=== PATIENT | female | born 1950 | race Asian ===

== ENCOUNTER 2018-01-21 11:48 | Inpatient (IN) | payer MEDICARE ==
[~2018-01-21] VITALS: Ht 142.2 cm; Wt 54.8 kg
[2018-01-21 12:05] VITALS: BP 120/78; PULSE 58; RESP 20; TEMP 98.3; O2SAT 98
--- NOTE | 2018-01-21 12:52 | PD ---
HPI Chief Complaint: Fall Time Seen by Provider: 12:26 Travel History International Travel<30 days: No Contact w/Intl Traveler<30days: No Traveled to known affect area: No History of Present Illness HPI 67-year-old female with PMH of DM, HTN presents the ED for evaluation of 10 out of 10 right hip and femur pain. Onset after [place] the [place] just [place]. She has not been ambulatory since then. She is a total knee replacement on the affected leg. She denies numbness, tingling of the extremity. She takes a baby aspirin a day. PFSH Social History Tobacco Use: No Allergies-Medications (Allergen,Severity, Reaction): Coded Allergies: No Known Allergies (Verified Allergy, Unknown, 01/21/18) Reported Meds & Prescriptions Reported Meds & Active Scripts Active Reported Ergocalciferol 50,000 Unit Cap 400 Units PO Q7D Amlodipine (Amlodipine Besylate) 5 Mg Tab 5 Mg PO DAILY Calcium 600 with Vitamin D (Calcium Carbonate-Cholecalciferol) 600-400 mg-Unit Tab 1 Tab PO DAILY Aspirin 81 Mg Chew 81 Mg CHEW ONCE [Zyrtec] Hydroxyzine HCl 25 Mg Tab 25 Mg PO QID Boniva (Ibandronate Sodium) 150 Mg Tab 150 Mg PO Q28D Zolpidem (Zolpidem Tartrate) 10 Mg Tab 10 Mg PO HS PRN Fluconazole 50 Mg Tab 50 Mg PO DAILY Lisinopril-Hctz 20-25 Mg Tab 1 Tab PO DAILY Omeprazole 40 Mg Cap 40 Mg DAILY Atorvastatin (Atorvastatin Calcium) 40 Mg Tab 40 Mg PO HS Iron (Ferrous Sulfate) 18 Mg Tab Ventolin Hfa 18 GM Inh (Albuterol Sulfate) 90 Mcg/Act Aer 1 Puff INH Q4H PRN Diclofenac-Misoprostol 50-0.2 Mg Tab 1 Tab PO QID Tamsulosin (Tamsulosin HCl) 0.4 Mg Cap 0.4 Mg HS Scopolamine Patch 72 HR (Scopolamine) 1 Mg Patch 1 Patch T-DERMAL Q72H Metformin (Metformin HCl) 1,000 Mg Tab 1,000 Mg PO BIDPC Review of Systems Except as stated in HPI: all other systems reviewed are Neg Physical Exam Narrative GENERAL: Well-nourished, well-developed female in no acute distress. SKIN: Focused skin assessment warm/dry. HEAD: Normocephalic. EYES: No scleral icterus. No injection or drainage. NECK: Supple, trachea midline. No JVD or lymphadenopathy. CARDIOVASCULAR: Regular rate and rhythm without murmurs, gallops, or rubs. RESPIRATORY: Breath sounds equal bilaterally. No accessory muscle use. GASTROINTESTINAL: Abdomen soft, non-tender, nondistended. MUSCULOSKELETAL: No cyanosis, or edema. FOCUSED RIGHT LOWER EXTREMITY EXAM: 2+ DP pulse. Leg is held in external rotation and foreshortened as compared to the unaffected leg. Patient has tenderness to palpation in the anterior lateral aspect of the leg. Range of motion testing deferred secondary to patient's pain. Neurovascularly intact distally. BACK: Nontender without obvious deformity. No CVA tenderness. Data Data Last Documented VS Vital Signs Date Time Temp Pulse Resp B/P (MAP) Pulse Ox O2 Delivery O2 Flow Rate FiO2 01/21/18 14:10 68 15 151/72 (98) 97 Room Air 01/21/18 12:05 98.3 Orders Orders Ice/Cold Pack (01/21/18 12:11) Hip, Uni(Ap&Lat) Wo Ap Pelvis (01/21/18 12:11) Electrocardiogram (01/21/18 12:52) Complete Blood Count With Diff (01/21/18 12:52) Comprehensive Metabolic Panel (01/21/18 12:52) Prothrombin Time / Inr (Pt) (01/21/18 12:52) Act Partial Throm Time (Ptt) (01/21/18 12:52) Urinalysis - C+S If Indicated (01/21/18 12:52) Type And Screen (01/21/18 12:52) Chest, Single Ap (01/21/18 12:52) Iv Access Insert/Monitor (01/21/18 12:52) Oximetry (01/21/18 12:52) Ecg Monitoring (01/21/18 12:52) Sodium Chloride 0.9% Flush (Ns Flush) (01/21/18 13:00) Femur (Ap & Lat/2vws) (01/21/18 13:33) Hydromorphone Pf Inj (Dilaudid Pf Inj) (01/21/18 14:00) Metoclopramide Inj (Reglan Inj) (01/21/18 14:15) Comprehensive Metabolic Panel (01/22/18 06:00) Free Thyroxine (T4) (01/22/18 06:00) Hemoglobin (Hgb) A1c (01/22/18 06:00) Magnesium (Mg) (01/22/18 06:00) Phosphorus (Po4) (01/22/18 06:00) Thyroid Stimulating Hormone (01/22/18 06:00) Complete Blood Count With Diff (01/22/18 06:00) Bedside Glucose KARINA.CSUGAR (01/21/18 14:41) Blood Glucose Goal (Criteria) (01/21/18 14:41) Hypoglycemia 70 Mg/Dl Or < (01/21/18 14:41) Notify Dr: Other (01/21/18 14:41) Dextrose 50% In Ellie (Vial) Inj (D50w (Vi (01/21/18 14:45) Glucagon Inj (Glucagon Inj) (01/21/18 14:45) Case Management Consult (01/21/18 ) Insulin Aspart Supplemtl Scale (Novolog (01/21/18 17:00) Admit To Inpatient (01/21/18 ) Code Status (01/21/18 14:41) Vital Signs (Adult) Q4H (01/21/18 14:41) Activity Bed Rest (01/21/18 14:41) Investment Accounting Clerk / Telemetry .CONTINUOUS (01/21/18 14:41) Intake + Output KARINA.QSHIFT (01/21/18 14:41) Diet Npo (01/22/18 Breakfast) Sodium Chlor 0.9% 1000 Ml Inj (Ns 1000 M (01/21/18 16:00) Sodium Chloride 0.9% Flush (Ns Flush) (01/21/18 14:45) Sodium Chloride 0.9% Flush (Ns Flush) (01/21/18 21:00) Acetaminophen (Tylenol) (01/21/18 14:45) Metoclopramide Inj (Reglan Inj) (01/21/18 14:45) Resp Oxygen Osmin C Titrat 1-4 L (01/21/18 ) Acetaminophen (Tylenol) (01/21/18 14:45) Oxycodone-Acetamin 5-325 Mg (Percocet (01/21/18 14:45) Oxycodone-Acetamin 10-325 Mg (Percocet 1 (01/21/18 14:45) Morphine Inj (Morphine Inj) (01/21/18 14:45) Morphine Inj (Morphine Inj) (01/21/18 14:45) Morphine Inj (Morphine Inj) (01/21/18 14:45) Naloxone Inj (Narcan Inj) (01/21/18 14:45) Docusate Sodium-Senna (Mimi-Colace) (01/21/18 21:00) Magnesium Hydroxide Liq (Milk Of Magnesi (01/21/18 14:45) Sennosides (Senokot) (01/21/18 14:45) Bisacodyl Supp (Dulcolax Supp) (01/21/18 14:45) Lactulose Liq (Lactulose Liq) (01/21/18 14:45) Inpatient Certification (01/21/18 ) Consult Orthopedic (01/21/18 ) Diet Diabetic (01/21/18 Dinner) Admit Order (Ed Use Only) (01/21/18 14:49) ^ Knee Immobilizer (01/21/18 14:49) Red Blood Cells (Rbc) (01/21/18 14:00) Ondansetron Odt (Zofran Odt) (01/21/18 15:45) Labs Laboratory Tests Test 01/21/18 14:05 01/21/18 14:35 White Blood Count 10.2 TH/MM3 Red Blood Count 4.52 MIL/MM3 Hemoglobin 10.0 GM/DL Hematocrit 32.1 % Mean Corpuscular Volume 71.1 FL Mean Corpuscular Hemoglobin 22.2 PG Mean Corpuscular Hemoglobin Concent 31.1 % Red Cell Distribution Width 27.6 % Platelet Count 297 TH/MM3 Mean Platelet Volume 8.4 FL Neutrophils (%) (Auto) 86.5 % Lymphocytes (%) (Auto) 6.8 % Monocytes (%) (Auto) 5.5 % Eosinophils (%) (Auto) 0.7 % Basophils (%) (Auto) 0.5 % Neutrophils # (Auto) 8.8 TH/MM3 Lymphocytes # (Auto) 0.7 TH/MM3 Monocytes # (Auto) 0.6 TH/MM3 Eosinophils # (Auto) 0.1 TH/MM3 Basophils # (Auto) 0.0 TH/MM3 CBC Comment AUTO DIFF Differential Comment AUTO DIFF CONFIRMED Basophilic Stippling MOD Ovalocytes 1+ Keratocytes OCC Blood Urea Nitrogen 9 MG/DL Creatinine 0.78 MG/DL Random Glucose 144 MG/DL Total Protein 7.1 GM/DL Albumin 3.4 GM/DL Calcium Level 8.4 MG/DL Alkaline Phosphatase 85 U/L Aspartate Amino Transf (AST/SGOT) 15 U/L Alanine Aminotransferase (ALT/SGPT) 16 U/L Total Bilirubin 0.2 MG/DL Sodium Level 134 MEQ/L Potassium Level 4.0 MEQ/L Chloride Level 99 MEQ/L Carbon Dioxide Level 25.1 MEQ/L Anion Gap 10 MEQ/L Estimat Glomerular Filtration Rate 73 ML/MIN Prothrombin Time 10.4 SEC Prothromb Time International Ratio 1.0 RATIO Activated Partial Thromboplast Time 19.6 SEC MDM Medical Decision Making Medical Screen Exam Complete: Yes Emergency Medical Condition: Yes Differential Diagnosis Hip fracture versus femur fracture versus dislocation versus other Narrative Course 67-year-old female with PMH of DM, HTN presents the ED for evaluation of 10 out of 10 right hip and femur pain. Onset after [place] the [place] just [place]. She has not been ambulatory since then. She is a total knee replacement on the affected leg. She takes a baby aspirin a day. Vitals reviewed. On exam the right leg is foreshortened and externally. Bounding DP pulse and the patient is intact to light. IV was established. Patient was administered 1 mg Dilaudid and 5 mg of Reglan. X-rays reveal distal femur fracture proximal to the knee prosthesis. I discussed the case with the patient is a need for admission. She and her family are agreeable. I spoke with Dr. Rocha's PA recommends the patient be placed in the immobilizer and made n.p.o. at midnight. I spoke with Dr. Johnson who agrees to accept the patient to the medicine service. Please see medicine notes for disposition. Flaquita Crystal January 21, 2018 12:52
[2018-01-21] MEDS ORDERED: SODIUM CHLORIDE 0.9% FLUSH 10 ML FLUSH IVF PRN (13:00)
[2018-01-21] MEDS ORDERED: HYDROmorphone HCL PF 2 MG/ML VIAL IV PUSH ONE (14:00)
[2018-01-21 14:10] VITALS: BP 151/72; PULSE 68; RESP 15; O2SAT 97
--- NOTE | 2018-01-21 14:10 | RADRPT ---
EXAM DATE: 01/21/2018 1:59 PM EDT AGE/SEX: 67 years / Female INDICATIONS: [place] CLINICAL DATA: This is the patient's initial encounter. Patient reports that signs and symptoms have been present for 1 day and indicates a pain score of 10/10. MEDICAL/SURGICAL HISTORY: None. . Right knee replacement. COMPARISON: No prior [facility] exams available for comparison. FINDINGS: There is a spiral fracture of the distal right femoral shaft above the right knee replacement. Proxim al femur appears intact. No dislocation. CONCLUSION: Spiral fracture distal right femoral shaft above right knee prosthesis. Electronically signed by: Esteban Cochran MD 01/21/2018 2:09 PM EDT
--- NOTE | 2018-01-21 14:14 | RADRPT ---
EXAM DATE: 01/21/2018 2:10 PM EDT AGE/SEX: 67 years / Female INDICATIONS: Fell in the ocean. CLINICAL DATA: This is the patient's initial encounter. Patient reports that signs and symptoms have been present for 1 day and indicates a pain score of 0/10. MEDICAL/SURGICAL HISTORY: None. None. COMPARISON: No prior [facility] exams available for comparison. FINDINGS: Minimal retrocardiac opacity. Cardiomegaly mediastinal contours are within normal limits. Bony thorax is intact. CONCLUSION: 1. Minimal retrocardiac opacity which may reflect a small hiatal hernia or airspace consolidation. C onsider formal PA and lateral views of the chest if there is continued clinical concern. Electronically signed by: Nic Castaneda MD 01/21/2018 2:12 PM EDT
[2018-01-21] MEDS ORDERED: METOCLOPRAMIDE HCL 10 MG/2 ML VIAL IV PUSH ONE ×2 (14:15→15:45)
[2018-01-21 14:16] LABS: AUTOMATED NEUTROPHIL # 8.8 TH/MM3 (1.8-7.7); BASOPHIL % 0.5 % (0.0-2.0); EOSINOPHIL # 0.1 TH/MM3 (0-0.4); EOSINOPHIL % 0.7 % (0.0-4.0); HEMATOCRIT 32.1 % (35.0-46.0); LYMPH % 6.8 % (9.0-44.0); LYMPHOCYTE # 0.7 TH/MM3 (1.0-4.8); MEAN CELL VOLUME 71.1 FL (80.0-100.0); MEAN CORPUSCULAR HEMOGLOBIN 22.2 PG (27.0-34.0); MEAN CORPUSCULAR HGB CONC 31.1 % (32.0-36.0); MEAN PLATELET VOLUME 8.4 FL (7.0-11.0); MONO % 5.5 % (0.0-8.0); MONOCYTE # 0.6 TH/MM3 (0-0.9); NEUT % 86.5 % (16.0-70.0); PLATELET COUNT 297 TH/MM3 (150-450); RED BLOOD COUNT 4.52 MIL/MM3 (4.00-5.30); RED CELL DISTRIBUTION WIDTH 27.6 % (11.6-17.2); WHITE BLOOD COUNT 10.2 TH/MM3 (4.0-11.0)
--- NOTE | 2018-01-21 14:20 | PD ---
Physical Exam Date Seen by Provider: January 21, 2018 Time Seen by Provider: 14:00 Narrative I, Dr. Bledsoe, have reviewed the advance practice practitioner's documentation and am in agreement, met with the patient face to face, made the diagnosis, and the medical decision making was done by me. *My assessment and Findings: Patient seen and evaluated with PA, please see PA notes for further details. She is here after a fall at the beach, has right thigh pain, shortened right lower extremity, concerning for underlying fracture. X-ray shows a spiral fracture of the right femur midshaft. She is neurovascularly intact. At this point, patient will need to be admitted medically for further treatment. Laboratory Tests Test 01/21/18 14:05 Hemoglobin 10.0 GM/DL (11.6-15.3) Hematocrit 32.1 % (35.0-46.0) Mean Corpuscular Volume 71.1 FL (80.0-100.0) Mean Corpuscular Hemoglobin 22.2 PG (27.0-34.0) Mean Corpuscular Hemoglobin Concent 31.1 % (32.0-36.0) Red Cell Distribution Width 27.6 % (11.6-17.2) Neutrophils (%) (Auto) 86.5 % (16.0-70.0) Lymphocytes (%) (Auto) 6.8 % (9.0-44.0) Neutrophils # (Auto) 8.8 TH/MM3 (1.8-7.7) Lymphocytes # (Auto) 0.7 TH/MM3 (1.0-4.8) Last 24 hours Impressions Femur X-Ray 01/21/18 1333 Signed Impressions: CONCLUSION: Spiral fracture distal right femoral shaft above right knee prosthesis. Chest X-Ray 01/21/18 1252 Signed Impressions: CONCLUSION: 1. Minimal retrocardiac opacity which may reflect a small hiatal hernia or air space consolidation. Consider formal PA and lateral views of the chest if there is continued clinical concern. Data Data Last Documented VS Vital Signs Date Time Temp Pulse Resp B/P (MAP) Pulse Ox O2 Delivery O2 Flow Rate FiO2 01/21/18 14:10 68 15 151/72 (98) 97 Room Air 01/21/18 12:05 98.3 Orders Orders Ice/Cold Pack (01/21/18 12:11) Hip, Uni(Ap&Lat) Wo Ap Pelvis (01/21/18 12:11) Electrocardiogram (01/21/18 12:52) Complete Blood Count With Diff (01/21/18 12:52) Comprehensive Metabolic Panel (01/21/18 12:52) Prothrombin Time / Inr (Pt) (01/21/18 12:52) Act Partial Throm Time (Ptt) (01/21/18 12:52) Urinalysis - C+S If Indicated (01/21/18 12:52) Type And Screen (01/21/18 12:52) Chest, Single Ap (01/21/18 12:52) Iv Access Insert/Monitor (01/21/18 12:52) Oximetry (01/21/18 12:52) Ecg Monitoring (01/21/18 12:52) Sodium Chloride 0.9% Flush (Ns Flush) (01/21/18 13:00) Femur (Ap & Lat/2vws) (01/21/18 13:33) Hydromorphone Pf Inj (Dilaudid Pf Inj) (01/21/18 14:00) Metoclopramide Inj (Reglan Inj) (01/21/18 14:15) Comprehensive Metabolic Panel (01/22/18 06:00) Free Thyroxine (T4) (01/22/18 06:00) Hemoglobin (Hgb) A1c (01/22/18 06:00) Magnesium (Mg) (01/22/18 06:00) Phosphorus (Po4) (01/22/18 06:00) Thyroid Stimulating Hormone (01/22/18 06:00) Complete Blood Count With Diff (01/22/18 06:00) Bedside Glucose KARINA.CSUGAR (01/21/18 14:41) Blood Glucose Goal (Criteria) (01/21/18 14:41) Hypoglycemia 70 Mg/Dl Or < (01/21/18 14:41) Notify Dr: Other (01/21/18 14:41) Dextrose 50% In Ellie (Vial) Inj (D50w (Vi (01/21/18 14:45) Glucagon Inj (Glucagon Inj) (01/21/18 14:45) Case Management Consult (01/21/18 ) Insulin Aspart Supplemtl Scale (Novolog (01/21/18 17:00) Admit To Inpatient (01/21/18 ) Code Status (01/21/18 14:41) Vital Signs (Adult) Q4H (01/21/18 14:41) Activity Bed Rest (01/21/18 14:41) Warp Spinner / Telemetry .CONTINUOUS (01/21/18 14:41) Intake + Output KARINA.QSHIFT (01/21/18 14:41) Diet Npo (01/22/18 Breakfast) Sodium Chlor 0.9% 1000 Ml Inj (Ns 1000 M (01/21/18 14:41) Sodium Chloride 0.9% Flush (Ns Flush) (01/21/18 14:45) Sodium Chloride 0.9% Flush (Ns Flush) (01/21/18 21:00) Acetaminophen (Tylenol) (01/21/18 14:45) Ondansetron Inj (Zofran Inj) (01/21/18 14:45) Metoclopramide Inj (Reglan Inj) (01/21/18 14:45) Resp Oxygen Osmin C Titrat 1-4 L (01/21/18 ) Acetaminophen (Tylenol) (01/21/18 14:45) Oxycodone-Acetamin 5-325 Mg (Percocet (01/21/18 14:45) Oxycodone-Acetamin 10-325 Mg (Percocet 1 (01/21/18 14:45) Morphine Inj (Morphine Inj) (01/21/18 14:45) Morphine Inj (Morphine Inj) (01/21/18 14:45) Morphine Inj (Morphine Inj) (01/21/18 14:45) Naloxone Inj (Narcan Inj) (01/21/18 14:45) Docusate Sodium-Senna (Mimi-Colace) (01/21/18 21:00) Magnesium Hydroxide Liq (Milk Of Magnesi (01/21/18 14:45) Sennosides (Senokot) (01/21/18 14:45) Bisacodyl Supp (Dulcolax Supp) (01/21/18 14:45) Lactulose Liq (Lactulose Liq) (01/21/18 14:45) Inpatient Certification (01/21/18 ) Consult Orthopedic (01/21/18 ) Diet Diabetic (01/21/18 Dinner) Admit Order (Ed Use Only) (01/21/18 14:49) ^ Knee Immobilizer (01/21/18 14:49) Labs Laboratory Tests Test 01/21/18 14:05 01/21/18 14:35 White Blood Count 10.2 TH/MM3 Red Blood Count 4.52 MIL/MM3 Hemoglobin 10.0 GM/DL Hematocrit 32.1 % Mean Corpuscular Volume 71.1 FL Mean Corpuscular Hemoglobin 22.2 PG Mean Corpuscular Hemoglobin Concent 31.1 % Red Cell Distribution Width 27.6 % Platelet Count 297 TH/MM3 Mean Platelet Volume 8.4 FL Neutrophils (%) (Auto) 86.5 % Lymphocytes (%) (Auto) 6.8 % Monocytes (%) (Auto) 5.5 % Eosinophils (%) (Auto) 0.7 % Basophils (%) (Auto) 0.5 % Neutrophils # (Auto) 8.8 TH/MM3 Lymphocytes # (Auto) 0.7 TH/MM3 Monocytes # (Auto) 0.6 TH/MM3 Eosinophils # (Auto) 0.1 TH/MM3 Basophils # (Auto) 0.0 TH/MM3 CBC Comment AUTO DIFF Blood Urea Nitrogen 9 MG/DL Creatinine 0.78 MG/DL Random Glucose 144 MG/DL Total Protein 7.1 GM/DL Albumin 3.4 GM/DL Calcium Level 8.4 MG/DL Alkaline Phosphatase 85 U/L Aspartate Amino Transf (AST/SGOT) 15 U/L Alanine Aminotransferase (ALT/SGPT) 16 U/L Total Bilirubin 0.2 MG/DL Sodium Level 134 MEQ/L Potassium Level 4.0 MEQ/L Chloride Level 99 MEQ/L Carbon Dioxide Level 25.1 MEQ/L Anion Gap 10 MEQ/L Estimat Glomerular Filtration Rate 73 ML/MIN [facility] Medical Record Reviewed: Yes Supervised Visit with MARY JANE: Yes Diagnosis Primary Impression: Right femoral fracture Admitting Information Admitting Physician Requests: it Low Bledsoe MD January 21, 2018 14:20
--- NOTE | 2018-01-21 14:25 | RADRPT ---
EXAM DATE: 01/21/2018 2:15 PM EDT AGE/SEX: 67 years / Female INDICATIONS: Fell in the ocean CLINICAL DATA: This is the patient's initial encounter. Patient reports that signs and symptoms have been present for 1 day and indicates a pain score of 10/10. MEDICAL/SURGICAL HISTORY: None. . right knee replacement COMPARISON: No prior [facility] exams available for comparison. FINDINGS: Patient appears to be total knee arthroplasty. Spiral fracture through the distal femoral diaphysis w ith one bone thickness posterior displacement of the distal fragment. CONCLUSION: Displaced spiral fracture through the distal femoral diaphysis as above Electronically signed by: Madhu Burt MD 01/21/2018 2:24 PM EDT
[2018-01-21 14:27] LABS: ALBUMIN 3.4 GM/DL (3.4-5.0); AST (GOT) 15 U/L (15-37); BICARBONATE 25.1 MEQ/L (21.0-32.0); BLOOD UREA NITROGEN 9 MG/DL (7-18); CALCIUM 8.4 MG/DL (8.5-10.1); CHLORIDE 99 MEQ/L (98-107); CREATININE 0.78 MG/DL (0.50-1.00); GLOMERULAR FILTRATION RATE 73 ML/MIN (>89); GLUCOSE,RANDOM 144 MG/DL (74-106); SODIUM (NA) 134 MEQ/L (136-145)
[2018-01-21 14:30] LABS: ALKALINE PHOSPHATASE 85 U/L (45-117); ALT (GPT) 16 U/L (10-53); TOTAL BILIRUBIN ADULT 0.2 MG/DL (0.2-1.0); TOTAL PROTEIN 7.1 GM/DL (6.4-8.2)
[2018-01-21] MEDS ORDERED: LACTULOSE SYRUP 20 GM/30 ML CUP PO PRN (14:45)
[2018-01-21] MEDS ORDERED: NALOXONE HCL 0.4 MG/ML AMP IV PUSH PRN (14:45)
[2018-01-21] MEDS ORDERED: ACETAMINOPHEN 325 MG TAB PO PRN ×2 (14:45)
[2018-01-21] MEDS ORDERED: SENNOSIDES 8.6 MG TAB PO PRN (14:45)
[2018-01-21] MEDS ORDERED: DEXTROSE 50% IN WATER 50 ML VIAL(D50) IV PUSH PRN (14:45)
[2018-01-21] MEDS ORDERED: MORPHINE SULFATE 2 MG/ML SYRINGE IV PUSH PRN ×3 (14:45)
[2018-01-21] MEDS ORDERED: MAGNESIUM HYDROXIDE SUSP 30 ML CUP PO PRN (14:45)
[2018-01-21] MEDS ORDERED: GLUCAGON 1 MG/ML VIAL OTHER PRN (14:45)
[2018-01-21] MEDS ORDERED: SODIUM CHLORIDE 0.9% FLUSH 10 ML FLUSH IV FLUSH PRN (14:45)
[2018-01-21] MEDS ORDERED: BISACODYL 10 MG SUPP RECTAL PRN (14:45)
[2018-01-21] MEDS ORDERED: METOCLOPRAMIDE HCL 10 MG/2 ML VIAL IV PUSH PRN (14:45)
[2018-01-21 15:00] VITALS: BP 145/68; PULSE 64; RESP 15; O2SAT 97
[2018-01-21 15:00] LABS: KERATOCYTES OCC (NORMAL); OVALOCYTES 1+ (NORMAL)
[2018-01-21] MEDS ORDERED: CALC1TAB87 PO (15:10)
[2018-01-21] MEDS ORDERED: METF1000 PO (15:10)
[2018-01-21] MEDS ORDERED: DICL1TAB PO (15:10)
[2018-01-21] MEDS ORDERED: LISI20TA3 PO (15:10)
[2018-01-21] MEDS ORDERED: AMLO5TAB2 PO (15:10)
[2018-01-21] MEDS ORDERED: OMEP40CA2 (15:10)
[2018-01-21] MEDS ORDERED: SCOP1PAT2 T-DERMAL (15:10)
[2018-01-21] MEDS ORDERED: HYDR-3133 PO (15:10)
[2018-01-21] MEDS ORDERED: VITA500012 PO (15:10)
[2018-01-21] MEDS ORDERED: FLUC50TA2 PO (15:10)
[2018-01-21] MEDS ORDERED: ATOR40TA16 PO (15:10)
[2018-01-21] MEDS ORDERED: Zyrtec (15:10)
[2018-01-21] MEDS ORDERED: ASPI-516 CHEW (15:10)
[2018-01-21] MEDS ORDERED: ZOLP10TA3 PO (15:10)
[2018-01-21] MEDS ORDERED: IRON18TA (15:10)
[2018-01-21] MEDS ORDERED: BONI150T PO (15:10)
[2018-01-21] MEDS ORDERED: VENTAER INH (15:10)
[2018-01-21] MEDS ORDERED: TAMS0.4C4 (15:10)
[2018-01-21 15:21] LABS: PROTHROMBIN TIME - PATIENT 10.4 SEC (9.8-11.6)
[2018-01-21 15:58] VITALS: O2SAT 95
[2018-01-21] MEDS ORDERED: ERGOCALCIFEROL (VIT D2) 50,000 UNIT CAP PO SCH (16:30)
[2018-01-21] MEDS ORDERED: ZOLPIDEM TARTRATE 10 MG TAB PO PRN (16:30)
[2018-01-21] MEDS ORDERED: ALBUTEROL SULFATE 90 MCG/ACT HFA 8 GM INHALER INH PRN (16:30)
--- NOTE | 2018-01-21 16:31 | HHI.HP ---
[facility] Primary [facility] Physician Non-Staff Admission Diagnosis right femur fracture Diagnoses: Chief Complaint: Status post fall Travel History International Travel<30 Days: No Contact w/Intl Traveler <30 Da: No Traveled to Known Affected Are: No History of Present Illness Patient is a 67-year-old female with past medical history of diabetes, hypertension hyperlipidemia. Who presented to the emergency department today with 10 out of 10 right hip pain and femur pain. Patient had onset of pain [place]. Patient has not been ambulatory since then. Has a history of a total knee replacement on the right leg. She denies any numbness, or tingling of the extremities. She is a diabetic who takes a baby aspirin daily. Found to have a right spiral femur fracture will be admitted for evaluation and treatment with orthopedic surgery Review of Systems Constitutional: DENIES: Diaphoretic episodes, Fatigue, Fever, Weight gain, Weight loss, Chills, Dizziness, Change in appetite, Night Sweats Endocrine: DENIES: Abnorml menstrual pattern, Heat/cold intolerance, Polydipsia , Polyuria, Polyphagia Eyes: DENIES: Blurred vision, Diplopia, Eye inflammation, Eye pain, Vision loss , Photosensitivity Ears, nose, mouth, throat: DENIES: Tinnitus, Hearing loss, Vertigo, Nasal discharge, Oral lesions, Throat pain, Hoarseness, Ear Pain, Running Nose, Epistaxis Respiratory: DENIES: Apneas, Cough, Snoring, Wheezing, Hemoptysis, Sputum production, Shortness of breath Cardiovascular: DENIES: Chest pain, Palpitations, Syncope, Dyspnea on Exertion , PND, Lower Extremity Edema, Orthopnea, Claudication Gastrointestinal: COMPLAINS OF: Nausea, Vomiting, DENIES: Abdominal pain, Black stools, Bloody stools, Constipation, Diarrhea Genitourinary: DENIES: Abnormal vaginal bleeding, Dysmenorrhea, Dyspareunia, Sexual dysfunction Musculoskeletal: COMPLAINS OF: Joint pain, DENIES: Muscle aches, Stiffness, Joint Swelling, Back pain, Neck pain Integumentary: DENIES: Abnormal pigmentation, Pruritus, Rash, Nail changes, Breast masses, Breast skin changes, Nipple discharge Hematologic/lymphatic: DENIES: Bruising, Lymphadenopathy Immunologic/allergic: DENIES: Eczema, Urticaria Neurologic: COMPLAINS OF: Abnormal gait, Poor Balance, DENIES: Headache, Localized weakness, Paresthesias, Seizures, Speech Problems, Tremor Psychiatric: DENIES: Anxiety, Confusion, Mood changes, Depression, Hallucinations, Agitation, Suicidal Ideation, Homicidal Ideation, Delusions Except as stated in HPI: all other systems reviewed are Neg Past Family Social History Past Medical History Diabetes Hypertension Seasonal allergies Osteoporosis Insomnia GERD Hyperlipidemia Anemia Asthma Kidney stones Past Surgical History Hysterectomy section Right knee repair Carpal tunnel surgery Reported Medications Reported Meds & Active Scripts Active Reported Ergocalciferol 50,000 Unit Cap 400 Units PO Q7D Amlodipine (Amlodipine Besylate) 5 Mg Tab 5 Mg PO DAILY Calcium 600 with Vitamin D (Calcium Carbonate-Cholecalciferol) 600-400 mg-Unit Tab 1 Tab PO DAILY Aspirin 81 Mg Chew 81 Mg CHEW ONCE [Zyrtec] Hydroxyzine HCl 25 Mg Tab 25 Mg PO QID Boniva (Ibandronate Sodium) 150 Mg Tab 150 Mg PO Q28D Zolpidem (Zolpidem Tartrate) 10 Mg Tab 10 Mg PO HS PRN Fluconazole 50 Mg Tab 50 Mg PO DAILY Lisinopril-Hctz 20-25 Mg Tab 1 Tab PO DAILY Omeprazole 40 Mg Cap 40 Mg DAILY Atorvastatin (Atorvastatin Calcium) 40 Mg Tab 40 Mg PO HS Iron (Ferrous Sulfate) 18 Mg Tab Ventolin Hfa 18 GM Inh (Albuterol Sulfate) 90 Mcg/Act Aer 1 Puff INH Q4H PRN Diclofenac-Misoprostol 50-0.2 Mg Tab 1 Tab PO QID Tamsulosin (Tamsulosin HCl) 0.4 Mg Cap 0.4 Mg HS Scopolamine Patch 72 HR (Scopolamine) 1 Mg Patch 1 Patch T-DERMAL Q72H Metformin (Metformin HCl) 1,000 Mg Tab 1,000 Mg PO BIDPC Allergies: Coded Allergies: No Known Allergies (Verified Allergy, Unknown, 01/21/18) Active Ordered Medications Current Medications Sodium Chloride (NS Flush) 2 ml UNSCH PRN IVF FLUSH AFTER USING IV ACCESS; Start 01/21/18 at 13:00; Stop 01/21/18 at 15:29; Status DC Hydromorphone HCl (Dilaudid Pf Inj) 1 mg ONCE ONCE IV PUSH Last administered on 01/21/18at 14:19; Start 01/21/18 at 14:00; Stop 01/21/18 at 14:01; Status DC Metoclopramide HCl (Reglan Inj) 10 mg ONCE ONCE IV PUSH Last administered on at 14:18; Start 01/21/18 at 14:15; Stop 01/21/18 at 14:16; Status DC Dextrose (D50w (Vial) Inj) 50 ml UNSCH PRN IV PUSH HYPOGLYCEMIA-SEE COMMENTS; Start 01/21/18 at 14:45 Glucagon (Glucagon Inj) 1 mg UNSCH PRN OTHER HYPOGLYCEMIA-SEE COMMENTS; Start 01/21/18 at 14:45 Insulin Aspart (NovoLOG SUPPLEMENTAL SCALE) 1 ACHS SLIDING SCALE SQ ; Start at 17:00 Sodium Chloride 1,000 ml @ 100 mls/hr Q10H IV ; Start 01/21/18 at 16:00 Sodium Chloride (NS Flush) 2 ml UNSCH PRN IV FLUSH FLUSH AFTER USING IV ACCESS ; Start 01/21/18 at 14:45 Sodium Chloride (NS Flush) 2 ml BID IV FLUSH ; Start 01/21/18 at 21:00 Acetaminophen (Tylenol) 650 mg Q4H PRN PO TEMP > 100.4; Start 01/21/18 at 14:45 Ondansetron HCl (Zofran Odt) 4 mg Q6H PRN PO NAUSEA/VOMITING; Start 01/21/18 at 15:45 Metoclopramide HCl (Reglan Inj) 5 mg Q6H PRN IV PUSH NAUSEA OR VOMITING; Start 01/21/18 at 14:45 Acetaminophen (Tylenol) 650 mg Q6H PRN PO PAIN SCALE 1 TO 2; Start 01/21/18 at 14:45 Oxycodone/ Acetaminophen (Percocet 5-325 Mg) 1 tab Q6H PRN PO PAIN SCALE 3 TO 5; Start 01/21/18 at 14:45 Oxycodone/ Acetaminophen (Percocet 10-325 Mg) 1 tab Q6H PRN PO PAIN SCALE 6 TO 10; Start 01/21/18 at 14:45 Morphine Sulfate (Morphine Inj) 2 mg Q3H PRN IV PUSH Pain 3-5; if unable to take PO; Start 01/21/18 at 14:45 Morphine Sulfate (Morphine Inj) 4 mg Q3H PRN IV PUSH Pain 6-10;if unable to take PO; Start 01/21/18 at 14:45 Morphine Sulfate (Morphine Inj) 4 mg Q3H PRN IV PUSH BREAKTHROUGH PAIN; Start 01/21/18 at 14:45 Naloxone HCl (Narcan Inj) 0.4 mg UNSCH PRN IV PUSH SEE LABEL COMMENTS; Start at 14:45 Senna/Docusate Sodium (Mimi-Colace) 1 tab BID PO ; Start 01/21/18 at 21:00 Magnesium Hydroxide (Milk Of Magnesia Liq) 30 ml Q12H PRN PO Mild constipation ; Start 01/21/18 at 14:45 Sennosides (Senokot) 17.2 mg Q12H PRN PO Moderate constipation; Start 01/21/18 at 14:45 Bisacodyl (Dulcolax Supp) 10 mg DAILY PRN RECTAL SEVERE CONSITIPATION; Start at 14:45 Lactulose (Lactulose Liq) 30 ml DAILY PRN PO SEVERE CONSITIPATION; Start at 14:45 Metoclopramide HCl (Reglan Inj) 5 mg ONCE ONCE IV PUSH ; Start 01/21/18 at 15: 45; Stop 01/21/18 at 15:46; Status DC Family History Diabetes Hypertension cholesterol Social History Occasional alcohol Denies any tobacco or illicits Physical Exam Vital Signs Vital Signs Date Time Temp Pulse Resp B/P (MAP) Pulse Ox O2 Delivery O2 Flow Rate FiO2 01/21/18 15:58 95 21 01/21/18 15:00 64 15 145/68 (93) 97 Room Air 01/21/18 14:10 68 15 151/72 (98) 97 Room Air 01/21/18 13:00 50 15 100 Room Air 01/21/18 12:05 98.3 58 20 120/78 (92) 98 Physical Exam GENERAL: This is a well-nourished, well-developed patient, Having some nausea and vomiting SKIN: No rashes, ecchymoses or lesions. Cool and dry. HEAD: Atraumatic. Normocephalic. No temporal or scalp tenderness. EYES: Pupils equal round and reactive. Extraocular motions intact. No scleral icterus. No injection or drainage. ENT: Nose without bleeding, purulent drainage or septal hematoma. Throat without erythema, tonsillar hypertrophy or exudate. Uvula midline. Airway patent. NECK: Trachea midline. No JVD or lymphadenopathy. Supple, nontender, no meningeal signs. CARDIOVASCULAR: Regular rate and rhythm without murmurs, gallops, or rubs. S1- S2 no S3 or S4 RESPIRATORY: Clear to auscultation. Breath sounds equal bilaterally. No wheezes , rales, or rhonchi. GASTROINTESTINAL: Abdomen soft, non-tender, nondistended. No hepato-splenomegaly , or palpable masses. No guarding. MUSCULOSKELETAL: Extremities without clubbing, cyanosis, or edema. No joint tenderness, effusion, or edema noted. No calf tenderness. Negative Homans sign bilaterally. Decreased range of motion of right lower extremity and inability to ambulate NEUROLOGICAL: Awake and alert. Cranial nerves II through XII intact. Motor and sensory grossly within normal limits. Five out of 5 muscle strength in all muscle groups. Normal speech. Awake alert and oriented talkative and cooperative Insight and judgment is good Mood and behaviors are appropriate Laboratory Laboratory Tests Test 01/21/18 14:05 01/21/18 14:35 White Blood Count 10.2 Red Blood Count 4.52 Hemoglobin 10.0 Hematocrit 32.1 Mean Corpuscular Volume 71.1 Mean Corpuscular Hemoglobin 22.2 Mean Corpuscular Hemoglobin Concent 31.1 Red Cell Distribution Width 27.6 Platelet Count 297 Mean Platelet Volume 8.4 Neutrophils (%) (Auto) 86.5 Lymphocytes (%) (Auto) 6.8 Monocytes (%) (Auto) 5.5 Eosinophils (%) (Auto) 0.7 Basophils (%) (Auto) 0.5 Neutrophils # (Auto) 8.8 Lymphocytes # (Auto) 0.7 Monocytes # (Auto) 0.6 Eosinophils # (Auto) 0.1 Basophils # (Auto) 0.0 CBC Comment AUTO DIFF Differential Comment AUTO DIFF CONFIRMED Basophilic Stippling MOD Ovalocytes 1+ Keratocytes OCC Blood Urea Nitrogen 9 Creatinine 0.78 Random Glucose 144 Total Protein 7.1 Albumin 3.4 Calcium Level 8.4 Alkaline Phosphatase 85 Aspartate Amino Transf (AST/SGOT) 15 Alanine Aminotransferase (ALT/SGPT) 16 Total Bilirubin 0.2 Sodium Level 134 Potassium Level 4.0 Chloride Level 99 Carbon Dioxide Level 25.1 Anion Gap 10 Estimat Glomerular Filtration Rate 73 Prothrombin Time 10.4 Prothromb Time International Ratio 1.0 Activated Partial Thromboplast Time 19.6 Result Diagram: 01/21/18 1405 01/21/18 1405 Imaging Last Impressions Femur X-Ray 01/21/18 1333 Signed Impressions: CONCLUSION: Spiral fracture distal right femoral shaft above right knee prosthesis. Chest X-Ray 01/21/18 1252 Signed Impressions: CONCLUSION: 1. Minimal retrocardiac opacity which may reflect a small hiatal hernia or air space consolidation. Consider formal PA and lateral views of the chest if there is continued clinical concern. Hip X-Ray 01/21/18 1211 Signed Impressions: CONCLUSION: Displaced spiral fracture through the distal femoral diaphysis as above Caprini VTE Risk Assessment Caprini VTE Risk Assessment: Mod/High Risk (score >= 2) Caprini Risk Assessment Model Point Value = 1 Point Value = 2 Point Value = 3 Point Value = 5 Age 41-60 Minor surgery BMI > 25 kg/m2 Swollen legs Varicose veins or History of unexplained or recurrent spontaneous Oral contraceptives or hormone replacement Sepsis (< 1 month) Serious lung disease, including pneumonia (< 1 month) Abnormal pulmonary function Acute myocardial infarction Congestive heart failure (< 1 month) History of inflammatory bowel disease Medical patient at bed rest Age 61-74 Arthroscopic surgery Major open surgery (> 45 min) Laparoscopic surgery (> 45 min) Malignancy Confined to bed (> 72 hours) Immobilizing plaster cast Central venous access Age >= 75 History of VTE Family history of VTE Factor V Leiden Prothrombin [id number] Lupus anticoagulant Anticardiolipin antibodies Elevated serum homocysteine Heparin-induced thrombocytopenia Other congenital or acquired thrombophilia Stroke (< 1 month) Elective arthroplasty Hip, pelvis, or leg fracture Acute spinal cord injury (< 1 month) Prophylaxis Regimen Total Risk Factor Score Risk Level Prophylaxis Regimen 0-1 Low Early ambulation 2 Moderate Order ONE of the following: *Sequential Compression Device (SCD) *Heparin 5000 units SQ BID 3-4 Higher Order ONE of the following medications: *Heparin 5000 units SQ TID *Enoxaparin/Lovenox 40 mg SQ daily (WT < 150 kg, CrCl > 30 mL/min) *Enoxaparin/Lovenox 30 mg SQ daily (WT < 150 kg, CrCl > 10-29 mL/min) *Enoxaparin/Lovenox 30 mg SQ BID (WT < 150 kg, CrCl > 30 mL/min) AND/OR *Sequential Compression Device (SCD) 5 or more Highest Order ONE of the following medications: *Heparin 5000 units SQ TID (Preferred with Epidurals) *Enoxaparin/Lovenox 40 mg SQ daily (WT < 150 kg, CrCl > 30 mL/min) *Enoxaparin/Lovenox 30 mg SQ daily (WT < 150 kg, CrCl > 10-29 mL/min) *Enoxaparin/Lovenox 30 mg SQ BID (WT < 150 kg, CrCl > 30 mL/min) AND *Sequential Compression Device (SCD) Assessment and Plan Assessment and Plan Spiral fracture of right femur-- we will consult orthopedic surgery Pain control Antinausea medication Diabetes continue on home medications with metformin with sliding scale coverage and Accu-Cheks before meals and at bedtime with NovoLog Hypertension resume home medications Hyperlipidemia resume home statin Kidney stones continue on Flomax Nausea and vomiting continue on antiemetics as needed Asthma have her inhalers as needed Anemia monitor labs Pain control GI and DVT prophylaxis Hopefully for surgery on the right lower extremity tomorrow with orthopedic surgery keep n.p.o. after midnight Code Status Full code Discussed Condition With RN and patient and emergency room physician and and family Physician Certification 2 Midnight Certification Type: Admission for Inpatient Services Order for Inpatient Services The services are ordered in accordance with Medicare regulations or non- Medicare payer requirements, as applicable. In the case of services not specified as inpatient-only, they are appropriately provided as inpatient services in accordance with the 2-midnight benchmark. Estimated LOS (days): 3 days is the estimated time the patient will need to remain in the hospital, assuming treatment plan goals are met and no additional complications. Post-Hospital Plan: Not yet determined Chacorta Johnson DO January 21, 2018 16:31
[2018-01-21 17:00] VITALS: BP 143/70; PULSE 60; RESP 15; O2SAT 97
[2018-01-21] MEDS: SODIUM CHLOR 0.9% 1000 ML INJ 1,000 ML IV SCH ×2 (17:04→22:27)
[2018-01-21] MEDS: INSULIN ASPART SUPPLEMENTAL SCALE SQ SCH ×2 (17:28→22:13)
[2018-01-21] MEDS ORDERED: PILL SPLITTER OTHER PRN (17:45)
[2018-01-21] MEDS: REMOVE OLD SCOPOLAMINE PATCH T-DERMAL SCH (18:00)
[2018-01-21] MEDS: metFORMIN HCL 500 MG TAB PO SCH (18:00)
[2018-01-21] MEDS: hydrOXYzine HCL 25 MG TAB PO SCH ×2 (19:00→20:05)
[2018-01-21] MEDS: oxyCODONE/ACETAMINOPHEN 10 MG/325 MG TAB PO PRN (19:00)
[2018-01-21 20:00] VITALS: BP 120/60; PULSE 57; RESP 20; TEMP 97.7; O2SAT 97
[2018-01-21] MEDS: SCOPOLAMINE 1.5 MG PATCH T-DERMAL SCH (20:01)
[2018-01-21] MEDS: ONDANSETRON ODT 4 MG TAB PO PRN (20:04)
[2018-01-21] MEDS: DOCUSATE SODIUM 50 MG/SENNA 8.6 MG TAB PO SCH (20:05)
[2018-01-21] MEDS: SODIUM CHLORIDE 0.9% FLUSH 10 ML FLUSH IV FLUSH SCH (20:05)
[2018-01-21] MEDS: TAMSULOSIN HCL 0.4 MG CAP PO SCH (20:05)
[2018-01-21] MEDS: ATORVASTATIN 40 MG TAB PO SCH (20:05)
[2018-01-22] VITALS (10 sets, daily range): BP systolic 108–129; BP diastolic 56–66; PULSE 50–72; RESP 16–20; TEMP 97.2–98.1; O2SAT 95–100
[2018-01-22] MEDS ORDERED: SODIUM CHLORID 0.9% 500 ML IV PRN (02:00)
[2018-01-22] MEDS ORDERED: LACTATED RINGER'S 1000 ML IV PRN (02:00)
[2018-01-22] MEDS ORDERED: CHLORHEXIDINE GLUCONATE 2 % 1 PACK (2 CLOTHS) TOPICAL PRN (02:00)
[2018-01-22] MEDS ORDERED: POVIDONE IODINE 5% (ANTISEPSIS KIT) 4 APPLICATIONS EACH NARE PRN (02:00)
[2018-01-22] MEDS ORDERED: VITA500012 PO (06:40)
[2018-01-22] MEDS ORDERED: XARE10TA PO (06:40)
[2018-01-22] MEDS ORDERED: CALCTAB19 PO (06:40)
[2018-01-22] MEDS ORDERED: WALKER/ADULT/FO1 MIS (06:40)
[2018-01-22] MEDS ORDERED: WHEEMIS3 (06:40)
[2018-01-22] MEDS ORDERED: VITA2000 PO (06:40)
[2018-01-22] MEDS ORDERED: HYDR-3583 PO (06:40)
--- NOTE | 2018-01-22 06:43 | PD.ORT.PN ---
Subjective Subjective Remarks [place] right knee pain. no other complaints. Objective Vitals Vital Signs Date Time Temp Pulse Resp B/P (MAP) Pulse Ox O2 Delivery O2 Flow Rate FiO2 01/22/18 05:01 21 01/22/18 04:00 97.4 59 20 117/57 (77) 97 01/22/18 02:00 55 01/22/18 00:00 97.2 50 19 114/56 (75) 98 01/21/18 20:00 97.7 57 20 120/60 (80) 97 01/21/18 17:14 01/21/18 17:00 60 15 143/70 (94) 97 Room Air 01/21/18 15:58 95 21 01/21/18 15:00 64 15 145/68 (93) 97 Room Air 01/21/18 14:10 68 15 151/72 (98) 97 Room Air 01/21/18 13:00 50 15 100 Room Air 01/21/18 12:05 98.3 58 20 120/78 (92) 98 I/O 01/21/18 01/21/18 01/21/18 01/22/18 01/22/18 01/22/18 07:00 15:00 23:00 07:00 15:00 23:00 Intake Total 480 ml Balance 480 ml Intake Oral 480 ml # Voids 3 Result Diagram: 01/21/18 1405 01/21/18 1405 Other Results Laboratory Tests Test 01/21/18 14:35 Prothromb Time International Ratio 1.0 RATIO Prothrombin Time 10.4 SEC (9.8-11.6) Imaging Last 24 hours Impressions Femur X-Ray 01/21/18 1333 Signed Impressions: CONCLUSION: Spiral fracture distal right femoral shaft above right knee prosthesis. Chest X-Ray 01/21/18 1252 Signed Impressions: CONCLUSION: 1. Minimal retrocardiac opacity which may reflect a small hiatal hernia or air space consolidation. Consider formal PA and lateral views of the chest if there is continued clinical concern. Hip X-Ray 01/21/18 1211 Signed Impressions: CONCLUSION: Displaced spiral fracture through the distal femoral diaphysis as above Objective Remarks RLE: +CKS. NVI distally with strong dorsiflexion. Assessment & Plan Assessment and Plan 1) Right Distal Periprosthetic Femur Fx s/p ORIF - POD 0 -NWB -CKS -elevate -no quad sets or leg lifts -PROM 0-90deg -plan for DC home sat/sun pending patient ambulatory status and progress -patient lives in [place], plan for follow up with Ortho in 2 weeks at home. -informed patient to wait at least 1 week before flying -scripts on chart Evelio Echavarria PA/Credit Risk Management Director PA January 22, 2018 06:43
[2018-01-22 07:14] LABS: AUTOMATED NEUTROPHIL # 4.5 TH/MM3 (1.8-7.7); BASOPHIL % 0.5 % (0.0-2.0); EOSINOPHIL # 0.1 TH/MM3 (0-0.4); HEMATOCRIT 29.2 % (35.0-46.0); HEMOGLOBIN 9.2 GM/DL (11.6-15.3); LYMPH % 17.7 % (9.0-44.0); LYMPHOCYTE # 1.2 TH/MM3 (1.0-4.8); MEAN CELL VOLUME 71.5 FL (80.0-100.0); MEAN CORPUSCULAR HEMOGLOBIN 22.5 PG (27.0-34.0); MEAN CORPUSCULAR HGB CONC 31.5 % (32.0-36.0); MEAN PLATELET VOLUME 8.7 FL (7.0-11.0); MONO % 11.7 % (0.0-8.0); MONOCYTE # 0.8 TH/MM3 (0-0.9); NEUT % 69.1 % (16.0-70.0); PLATELET COUNT 270 TH/MM3 (150-450); RED BLOOD COUNT 4.09 MIL/MM3 (4.00-5.30); RED CELL DISTRIBUTION WIDTH 27.8 % (11.6-17.2); WHITE BLOOD COUNT 6.6 TH/MM3 (4.0-11.0)
[2018-01-22 07:47] LABS: ALT (GPT) 13 U/L (10-53); AST (GOT) 14 U/L (15-37); BICARBONATE 26.3 MEQ/L (21.0-32.0); BLOOD UREA NITROGEN 8 MG/DL (7-18); CALCIUM 8.2 MG/DL (8.5-10.1); CHLORIDE 103 MEQ/L (98-107); CREATININE 0.69 MG/DL (0.50-1.00); GLOMERULAR FILTRATION RATE 85 ML/MIN (>89); GLUCOSE,RANDOM 91 MG/DL (74-106); PHOSPHORUS 2.4 MG/DL (2.5-4.9); SODIUM (NA) 139 MEQ/L (136-145)
[2018-01-22 07:55] LABS: ALKALINE PHOSPHATASE 75 U/L (45-117); FREE T4 1.38 NG/DL (0.76-1.46); TOTAL BILIRUBIN ADULT 0.3 MG/DL (0.2-1.0); TOTAL PROTEIN 6.4 GM/DL (6.4-8.2)
[2018-01-22] MEDS: INSULIN ASPART SUPPLEMENTAL SCALE SQ SCH ×4 (08:00→21:00)
[2018-01-22] MEDS: amLODIPine BESYLATE 5 MG TAB PO SCH (09:00)
[2018-01-22] MEDS ORDERED: CALCIUM/VITAMIN D 250 MG/125 U TAB PO SCH (09:00)
[2018-01-22] MEDS: PANTOPRAZOLE SOD 40 MG DELAYED RELEASE TAB PO SCH (09:00)
[2018-01-22] MEDS: LISINOPRIL 20 MG TAB PO SCH (09:00)
[2018-01-22] MEDS ORDERED: NON-FORMULARY DRUG (Omeprazole 40 MG) SCH (09:00)
[2018-01-22] MEDS: DOCUSATE SODIUM 50 MG/SENNA 8.6 MG TAB PO SCH ×2 (09:00→22:21)
[2018-01-22] MEDS ORDERED: CHOLECALCIFEROL (VIT D3) 400 UNIT TAB PO SCH (09:00)
[2018-01-22] MEDS ORDERED: NON-FORMULARY DRUG (Lisinopril-Hctz 1 TAB) PO SCH (09:00)
[2018-01-22] MEDS: FLUCONAZOLE 100 MG TAB PO SCH (09:00)
[2018-01-22] MEDS: HYDROCHLOROTHIAZIDE 25 MG TAB PO SCH (09:00)
[2018-01-22] MEDS: SODIUM CHLORIDE 0.9% FLUSH 10 ML FLUSH IV FLUSH SCH ×2 (09:00→21:00)
[2018-01-22] MEDS: metFORMIN HCL 500 MG TAB PO SCH ×2 (09:00→18:21)
[2018-01-22] MEDS: hydrOXYzine HCL 25 MG TAB PO SCH ×4 (09:00→22:21)
[2018-01-22 09:08] LABS: BANDS 11 % (0-6); LYMPHOCYTES 16 % (9-44); MONOCYTES 7 % (0-8); OVALOCYTES 1+ (NORMAL); POLYS (SEG NEUTROPHILS) 65 % (16-70)
[2018-01-22] MEDS ORDERED: ceFAZolin INJ 1,000 MG VIAL ONE (11:11)
[2018-01-22] MEDS ORDERED: SODIUM CHLOR 0.9% 250 ML INJ 250 ML ONE (11:11)
[2018-01-22] MEDS ORDERED: VANCOMYCIN HCL 1000 MG VIAL ONE (11:11)
[2018-01-22] MEDS ORDERED: GENTAMICIN SULFATE 80 MG/2 ML VIAL ONE (11:12)
[2018-01-22] MEDS ORDERED: ACETAMINOPHEN 1000 MG/100 ML 100 ML IV ONE (11:37)
[2018-01-22] MEDS ORDERED: ROCURONIUM INJ 50 MG/5 ML SYRINGE IV PUSH ONE (12:00)
[2018-01-22] MEDS ORDERED: ONDANSETRON HCL 4 MG/2 ML VIAL IV PUSH ONE (12:00)
[2018-01-22] MEDS: SODIUM CHLOR 0.9% 1000 ML INJ 1,000 ML IV SCH ×2 (12:00→22:22)
[2018-01-22] MEDS ORDERED: GLYCOPYRROLATE 1 MG/5 ML SYRINGE IV PUSH ONE (12:00)
[2018-01-22] MEDS ORDERED: SUCCINYLCHOLINE CHLORIDE 100 MG/5 ML SYRINGE IV PUSH ONE (12:00)
[2018-01-22] MEDS ORDERED: PROPOFOL 200 MG/20 ML AMP IV ONE (12:00)
[2018-01-22] MEDS ORDERED: DEXAMETHASONE SOD PHOS 4 MG/ML VIAL IV ONE (12:00)
[2018-01-22] MEDS ORDERED: ePHEDrine/NS 25 MG/5 ML SYRINGE IV ONE (12:00)
[2018-01-22] MEDS ORDERED: LIDOCAINE HCL 1% PF 5 ML SYRINGE OTHER ONE (12:00)
[2018-01-22] MEDS ORDERED: PHENYLEPH/NS 1000 MCG/10 ML SYR IV ONE (12:00)
[2018-01-22] MEDS ORDERED: NEOSTIGMINE 5 MG/5 ML SYRINGE IV PUSH ONE (12:00)
[2018-01-22] MEDS: LACTATED RINGER'S 1000 ML INJ 1,000 ML IV SCH (13:13)
[2018-01-22] MEDS ORDERED: ERGOCALCIFEROL (VIT D2) 50,000 UNIT CAP PO SCH (13:15)
[2018-01-22] MEDS ORDERED: NURSING INFORMATION XX PRN (13:15)
[2018-01-22] MEDS ORDERED: Post-op Orders (for Pharmacy) XX ONE (13:15)
[2018-01-22] MEDS ORDERED: diphenhydrAMINE HCL 25 MG CAP PO PRN (13:15)
--- NOTE | 2018-01-22 13:18 | PD.OP ---
cc: Corbin Phillips MD Operative Report Date of Surgery: January 22, 2018 Preoperative Diagnosis: Displaced right distal femur supracondylar fracture Postoperative Diagnosis: Procedure: Open reduction to fixation right distal femur Anesthesia: General Surgeon: Corbin Phillips Integrated Circuits Inspector(s): HARINI Montes PA-C The surgical procedure was assisted by my physician speech and language assistant. My P.A. presence was necessary throughout this case for the manipulation and positioning of the surgical extremity. My P.A. was assisting me throughout the duration of this procedure. The skill set of a physician speech and language assistant was medically necessary to complete this procedure. During the surgical case the surgical technology instructor was working at the back table and the physician speech and language assistant was directly assisting me. Operation and Findings: Implants used: ITS Plan of activity: Nonweightbearing Patient was seen and evaluated preoperatively. She was found to have a displaced distal femur periprosthetic fracture. Informed consent was obtained, operative site was marked. Patient was brought to the OR, placed on OR table, and given IV sedation with GETA. IV antibiotics were administered and timeout procedure was performed. Clean area was used for this procedure. The operative leg was prepped with alcohol, followed with Hibiclens, draped in usual sterile fashion. A timeout procedure was performed. The procedure began with a 5-inch incision over the lateral aspect of the distal femur. Subcutaneous tissue was dissected with Bovie. Iliotibial band was split in line with fibers. At this point the fracture was visualized. Traction was applied. Fracture was manipulated. The fracture reduced into appropriate alignment. There was comminution of the metaphyseal region. Steinmann pins were used to hold provisional fixation. At this point attention was turned to plate placement. A lateral condylar plate was selected and attached to the insertion handle jig. The plate was placed underneath the vastus lateralis. Steinmann pins were used to hold the plate to bone. Multiplanar fluoroscopy confirmed appropriate placement of plate. Multiple 4.5 cortical screws were now placed in percutaneous fashion through the plate. The plate was compressed to bone. Multiple locking screws were now placed in the distal segment of the distal femur. Additional screws were placed into the femoral shaft. All screws were predrilled and premeasured for appropriate length. Final fluoroscopy revealed excellent alignment of fracture with well- placed hardware. Wound was thoroughly irrigated. Fascia was closed with #1 Vicryl. Subcutaneous tissue was closed with 3-0 Vicryl. Skin was closed with laurie. Sterile dressings were applied. The patient was placed into a knee immobilizer and transferred to recovery in stable condition. Needle and sponge counts were correct. Corbin Phillips MD January 22, 2018 13:18
[2018-01-22] MEDS ORDERED: SUGAMMADEX SODIUM 200 MG/2 ML VIAL IV PUSH ONE (13:31)
[2018-01-22] MEDS ORDERED: DO NOT ADM ANY ANTICOAGULANT DRUGS PRN (13:41)
[2018-01-22] MEDS ORDERED: MIDAZOLAM HCL 2 MG/2 ML VIAL ONE (13:53)
[2018-01-22] MEDS: oxyCODONE/ACETAMINOPHEN 10 MG/325 MG TAB PO PRN ×2 (15:10→22:20)
--- NOTE | 2018-01-22 15:37 | HHI.PR ---
Subjective Remarks Sleepy. just got a surgery. Complaint of right lower leg pain. Objective Vitals Vital Signs Date Time Temp Pulse Resp B/P (MAP) Pulse Ox O2 Delivery O2 Flow Rate FiO2 01/22/18 13:45 97.6 72 14 128/57 (80) 100 Nasal Cannula 3 01/22/18 10:08 95 21 01/22/18 08:00 98.1 57 16 118/56 (76) 98 01/22/18 05:01 21 01/22/18 04:00 97.4 59 20 117/57 (77) 97 01/22/18 02:00 55 01/22/18 00:00 97.2 50 19 114/56 (75) 98 01/21/18 20:00 97.7 57 20 120/60 (80) 97 01/21/18 17:14 01/21/18 17:00 60 15 143/70 (94) 97 Room Air 01/21/18 15:58 95 21 I/O 01/21/18 01/21/18 01/21/18 01/22/18 01/22/18 01/22/18 07:00 15:00 23:00 07:00 15:00 23:00 Intake Total 480 ml 500 ml Output Total 100 ml Balance 480 ml 400 ml Intake Oral 480 ml Other 500 ml Output Estimated Blood Loss 100 ml # Voids 3 Result Diagram: 01/22/18 0543 01/22/18 0543 Other Results Item Value Date Time Bedside Blood Glucose 114 mg/dl 01/22/18 0800 Bedside Blood Glucose 197 mg/dl 01/21/18 1728 Objective Remarks GENERAL: This is a well-nourished, well-developed patient, in no apparent distress. CARDIOVASCULAR: Regular rate and rhythm RESPIRATORY: Clear to auscultation. Breath sounds equal bilaterally. No wheezes , rales, or rhonchi. MUSCULOSKELETAL: Extremities without clubbing, cyanosis, or edema. Right lower leg immobilizer in place. NEURO: Alert & Oriented x4 to person, place, time, situation. Moves all ext x4 A/P Assessment and Plan Displaced right femur supracondylar fracture--status post op ORIF with Dr. Rocha today - continue postoperative care, pain control, physical therapy Diabetes mellitus type II continue on home medications with metformin with sliding scale coverage and Accu-Cheks Hypertension, chronic essential resume home medications amlodipine, lisinopril HCTZ Hyperlipidemia resume home statin Asthma, chronic and not in any exacerbation continue home albuterol inhalers as needed DVT prophylaxis - Lovenox Discharge Planning Home with home health care after clearance with orthopedic surgery Bre Mcghee MD January 22, 2018 15:37
[2018-01-22] MEDS ORDERED: ENALAPRILAT 1.25 MG/ML VIAL IV PUSH PRN (15:45)
--- NOTE | 2018-01-22 18:04 | EKG ---
Date Performed: 01/22/2018 Time Performed: 05:29:40 PTAGE: 67 years EKG: Sinus bradycardia Normal ECG except for rate NO PREVIOUS TRACING DOCTOR: Yamilka Loredo Interpretating Date/Time 01/27/2018 08:34:34
[2018-01-22] MEDS: CALCIUM/VITAMIN D 250 MG/125 U TAB PO SCH (18:21)
--- NOTE | 2018-01-22 21:12 | RADRPT ---
EXAM DATE: 01/22/2018 9:06 PM EDT AGE/SEX: 67 years / Female INDICATIONS: ORIF Distal Femur done in operating room. CLINICAL DATA: This is the patient's subsequent encounter. Patient reports that signs and symptoms h ave been present for 1 day and indicates a pain score of Nonresponsive. MEDICAL/SURGICAL HISTORY: Non-responsive. Non-responsive. COMPARISON: No prior [place] exams available for comparison. FINDINGS: 4 images were recorded digitally in the operating room using C-arm during placement of internal fixat ion hardware. CONCLUSION: Intraoperative images. Electronically signed by: Kai Mathis MD 01/22/2018 9:11 PM EDT
[2018-01-22] MEDS: ATORVASTATIN 40 MG TAB PO SCH (22:21)
[2018-01-22] MEDS: TAMSULOSIN HCL 0.4 MG CAP PO SCH (22:21)
[2018-01-22] MEDS: VANCOMYCIN INJ 1,000 MG in SODIUM CHLOR 0.9% 250 ML INJ 250 ML IV SCH (23:39)
[2018-01-23] VITALS (13 sets, daily range): BP systolic 109–124; BP diastolic 53–72; PULSE 60–92; RESP 15–20; TEMP 97.7–98.5; O2SAT 96–99
[2018-01-23] MEDS: LACTATED RINGER'S 1000 ML INJ 1,000 ML IV SCH ×2 (01:13→14:13)
[2018-01-23 05:04] LABS: HEMATOCRIT 24.6 % (35.0-46.0); HEMOGLOBIN 7.8 GM/DL (11.6-15.3)
--- NOTE | 2018-01-23 07:17 | PD.ORT.PN ---
Subjective Subjective Remarks pt is doing better, from [place], was originally supposed to fly back Thursday Objective Vitals Vital Signs Date Time Temp Pulse Resp B/P (MAP) Pulse Ox O2 Delivery O2 Flow Rate FiO2 01/23/18 05:54 98.0 81 17 124/60 (81) 97 01/23/18 04:22 74 01/23/18 00:49 Room Air 01/22/18 23:30 18 01/22/18 23:25 97.8 72 17 108/66 (80) 96 01/22/18 20:00 63 01/22/18 19:55 98 Nasal Cannula 2.00 01/22/18 19:10 98.1 69 18 129/60 (83) 99 01/22/18 16:00 97.6 60 18 113/56 (75) 100 01/22/18 14:40 62 14 124/58 (80) 100 Nasal Cannula 2 01/22/18 14:30 62 14 128/58 (81) 100 Nasal Cannula 2 01/22/18 14:15 63 14 121/57 (78) 100 Nasal Cannula 2 01/22/18 14:00 69 14 120/58 (78) 100 Nasal Cannula 3 01/22/18 13:45 97.6 72 14 128/57 (80) 100 Nasal Cannula 3 01/22/18 10:08 95 21 01/22/18 08:00 98.1 57 16 118/56 (76) 98 I/O 01/22/18 01/22/18 01/22/18 01/23/18 01/23/18 01/23/18 07:00 15:00 23:00 07:00 15:00 23:00 Intake Total 480 ml 500 ml 1100 ml 610 ml Output Total 100 ml Balance 480 ml 400 ml 1100 ml 610 ml Intake Oral 480 ml 360 ml IV Total 1100 ml 250 ml Other 500 ml Output Estimated Blood Loss 100 ml # Voids 3 1 4 # Bowel Movements 0 Result Diagram: 01/23/18 0415 01/22/18 0543 Imaging Last 24 hours Impressions Femur X-Ray 01/21/18 2603 Signed Impressions: CONCLUSION: Spiral fracture distal right femoral shaft above right knee prosthesis. Chest X-Ray 01/21/18 1252 Signed Impressions: CONCLUSION: 1. Minimal retrocardiac opacity which may reflect a small hiatal hernia or air space consolidation. Consider formal PA and lateral views of the chest if there is continued clinical concern. Hip X-Ray 01/21/18 1211 Signed Impressions: CONCLUSION: Displaced spiral fracture through the distal femoral diaphysis as above Objective Remarks RLE: dressings and splint in place +NVI Assessment & Plan Assessment and Plan 1) Right Distal Periprosthetic Femur Fx s/p ORIF - POD #1 -NWB -CKS -elevate -no quad sets or leg lifts -PROM 0-90deg -plan for DC thursday pending patient ambulatory status and progress -patient lives in [place], plan for follow up with Ortho in 2 weeks at home. -informed patient to wait at least 1 week before flying -scripts on chart Stevo Odell MD January 23, 2018 07:17
[2018-01-23] MEDS ORDERED: SODIUM CHLOR 0.9% 250 ML INJ 250 ML IV ONE (08:00)
[2018-01-23] MEDS: SODIUM CHLOR 0.9% 1000 ML INJ 1,000 ML IV SCH ×2 (08:00→18:00)
[2018-01-23] MEDS: INSULIN ASPART SUPPLEMENTAL SCALE SQ SCH ×4 (08:00→21:00)
[2018-01-23] MEDS: hydrOXYzine HCL 25 MG TAB PO SCH ×4 (09:00→21:02)
[2018-01-23] MEDS: CALCIUM/VITAMIN D 250 MG/125 U TAB PO SCH ×3 (09:44→17:44)
[2018-01-23] MEDS: amLODIPine BESYLATE 5 MG TAB PO SCH (09:44)
[2018-01-23] MEDS: DOCUSATE SODIUM 50 MG/SENNA 8.6 MG TAB PO SCH ×2 (09:44→21:02)
[2018-01-23] MEDS: FLUCONAZOLE 100 MG TAB PO SCH (09:45)
[2018-01-23] MEDS: LISINOPRIL 20 MG TAB PO SCH (09:46)
[2018-01-23] MEDS: metFORMIN HCL 500 MG TAB PO SCH ×2 (09:46→17:44)
[2018-01-23] MEDS: HYDROCHLOROTHIAZIDE 25 MG TAB PO SCH (09:46)
[2018-01-23] MEDS: CHOLECALCIFEROL (VIT D3) 1000 UNIT TAB PO SCH (09:46)
[2018-01-23] MEDS: PANTOPRAZOLE SOD 40 MG DELAYED RELEASE TAB PO SCH (09:46)
[2018-01-23] MEDS: SODIUM CHLORIDE 0.9% FLUSH 10 ML FLUSH IV FLUSH SCH ×2 (09:49→21:00)
[2018-01-23] MEDS ORDERED: FUROSEMIDE 20 MG/2 ML VIAL IV PUSH ONE (10:30)
[2018-01-23] MEDS ORDERED: BENZONATATE 100 MG CAP PO PRN (10:30)
[2018-01-23] MEDS: VANCOMYCIN INJ 1,000 MG in SODIUM CHLOR 0.9% 250 ML INJ 250 ML IV SCH (12:00)
[2018-01-23] MEDS: ENOXAPARIN SODIUM 30 MG/0.3 ML SYRINGE SQ SCH (14:04)
[2018-01-23] MEDS: oxyCODONE/ACETAMINOPHEN 10 MG/325 MG TAB PO PRN (14:27)
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
[2018-01-23] MEDS: TAMSULOSIN HCL 0.4 MG CAP PO SCH (21:02)
[2018-01-23] MEDS: ATORVASTATIN 40 MG TAB PO SCH (21:02)
[2018-01-24] VITALS (10 sets, daily range): BP systolic 108–137; BP diastolic 55–84; PULSE 62–99; RESP 19–20; TEMP 97.3–99.7; O2SAT 96–99
[2018-01-24] MEDS: oxyCODONE/ACETAMINOPHEN 10 MG/325 MG TAB PO PRN ×3 (02:01→17:34)
[2018-01-24] MEDS: LACTATED RINGER'S 1000 ML INJ 1,000 ML IV SCH ×2 (02:43→15:13)
[2018-01-24] MEDS: SODIUM CHLOR 0.9% 1000 ML INJ 1,000 ML IV SCH ×2 (04:00→14:00)
[2018-01-24 05:56] LABS: AUTOMATED NEUTROPHIL # 5.5 TH/MM3 (1.8-7.7); BASOPHIL % 0.4 % (0.0-2.0); EOSINOPHIL # 0.3 TH/MM3 (0-0.4); EOSINOPHIL % 3.8 % (0.0-4.0); HEMATOCRIT 30.6 % (35.0-46.0); HEMOGLOBIN 10.1 GM/DL (11.6-15.3); LYMPH % 21.2 % (9.0-44.0); LYMPHOCYTE # 1.9 TH/MM3 (1.0-4.8); MEAN CELL VOLUME 73.8 FL (80.0-100.0); MEAN CORPUSCULAR HEMOGLOBIN 24.3 PG (27.0-34.0); MEAN PLATELET VOLUME 8.8 FL (7.0-11.0); MONO % 12.6 % (0.0-8.0); MONOCYTE # 1.1 TH/MM3 (0-0.9); PLATELET COUNT 226 TH/MM3 (150-450); RED BLOOD COUNT 4.15 MIL/MM3 (4.00-5.30); RED CELL DISTRIBUTION WIDTH 23.9 % (11.6-17.2); WHITE BLOOD COUNT 8.9 TH/MM3 (4.0-11.0)
[2018-01-24 06:19] LABS: BICARBONATE 24.4 MEQ/L (21.0-32.0); CALCIUM 8.6 MG/DL (8.5-10.1); CREATININE 0.88 MG/DL (0.50-1.00)
[2018-01-24] MEDS: INSULIN ASPART SUPPLEMENTAL SCALE SQ SCH ×4 (08:00→20:52)
--- NOTE | 2018-01-24 08:14 | PD.ORT.PN ---
Subjective Subjective Remarks pt doing much better today, feels better; transfused 2 units yesterday Objective Vitals Vital Signs Date Time Temp Pulse Resp B/P (MAP) Pulse Ox O2 Delivery O2 Flow Rate FiO2 01/24/18 04:01 62 01/24/18 04:00 99.7 75 20 116/57 (76) 96 01/24/18 03:44 75 01/24/18 02:51 18 01/24/18 00:00 99.1 70 20 125/70 (88) 98 01/23/18 23:37 Room Air 01/23/18 20:59 98.4 73 18 123/56 99 01/23/18 20:00 98.4 70 20 110/58 (75) 98 01/23/18 20:00 68 01/23/18 17:52 98.5 79 18 112/72 98 01/23/18 16:00 98.5 79 18 109/56 (73) 99 01/23/18 12:00 98.5 88 18 110/54 (72) 99 01/23/18 11:00 98.0 86 15 110/54 99 01/23/18 10:30 98.0 92 18 120/57 96 01/23/18 10:00 98.2 90 18 124/60 98 01/23/18 09:22 97.7 60 18 110/53 99 01/23/18 08:40 98 I/O 01/23/18 01/23/18 01/23/18 01/24/18 01/24/18 01/24/18 07:00 15:00 23:00 07:00 15:00 23:00 Intake Total 610 ml 755 ml 520 ml 820 ml Balance 610 ml 755 ml 520 ml 820 ml Intake Oral 360 ml 720 ml IV Total 250 ml 350 ml 100 ml 100 ml Packed Cells 400 ml 400 ml Blood Product IV Normal Saline Flush 5 ml 20 ml # Voids 4 3 2 # Bowel Movements 0 Result Diagram: 01/24/184 01/24/18 044 Imaging Last 24 hours Impressions Femur X-Ray 01/21/18 1333 Signed Impressions: CONCLUSION: Spiral fracture distal right femoral shaft above right knee prosthesis. Chest X-Ray 01/21/18 1252 Signed Impressions: CONCLUSION: 1. Minimal retrocardiac opacity which may reflect a small hiatal hernia or air space consolidation. Consider formal PA and lateral views of the chest if there is continued clinical concern. Hip X-Ray 01/21/18 1211 Signed Impressions: CONCLUSION: Displaced spiral fracture through the distal femoral diaphysis as above Objective Remarks seen and examined by Dr. Stevo Odell RLE: dressings and splint in place +NVI Assessment & Plan Assessment and Plan 1) Right Distal Periprosthetic Femur Fx s/p ORIF - POD #2 -NWB -CKS -elevate -no quad sets or leg lifts -PROM 0-90deg -continue to work on therapy today, anticipate discharge Thursday -patient lives in [place], plan for follow up with Ortho in 2 weeks at home. -informed patient to wait at least 1 week before flying -scripts on chart Tracy López January 24, 2018 08:14
[2018-01-24] MEDS: metFORMIN HCL 500 MG TAB PO SCH ×2 (09:05→17:33)
[2018-01-24] MEDS: hydrOXYzine HCL 25 MG TAB PO SCH ×4 (09:05→20:52)
[2018-01-24] MEDS: amLODIPine BESYLATE 5 MG TAB PO SCH (09:06)
[2018-01-24] MEDS: PANTOPRAZOLE SOD 40 MG DELAYED RELEASE TAB PO SCH (09:06)
[2018-01-24] MEDS: CHOLECALCIFEROL (VIT D3) 1000 UNIT TAB PO SCH (09:06)
[2018-01-24] MEDS: DOCUSATE SODIUM 50 MG/SENNA 8.6 MG TAB PO SCH ×2 (09:06→20:52)
[2018-01-24] MEDS: FLUCONAZOLE 100 MG TAB PO SCH (09:06)
[2018-01-24] MEDS: CALCIUM/VITAMIN D 250 MG/125 U TAB PO SCH ×3 (09:06→17:32)
[2018-01-24] MEDS: LISINOPRIL 20 MG TAB PO SCH (09:06)
[2018-01-24] MEDS: HYDROCHLOROTHIAZIDE 25 MG TAB PO SCH (09:06)
[2018-01-24] MEDS: SODIUM CHLORIDE 0.9% FLUSH 10 ML FLUSH IV FLUSH SCH ×2 (09:13→20:57)
[2018-01-24] MEDS: ENOXAPARIN SODIUM 30 MG/0.3 ML SYRINGE SQ SCH (12:47)
--- NOTE | 2018-01-24 15:33 | HHI.PR ---
Subjective Remarks Patient has no complaints, she would like to go home soon but understands that we are awaiting approval from her insurance for a wheelchair and a walker. She explains to me that her prefers her to stay here for physical therapy as they are visiting and living in a hotel at the moment and cannot easily get PT there. Objective Vitals Vital Signs Date Time Temp Pulse Resp B/P (MAP) Pulse Ox O2 Delivery O2 Flow Rate FiO2 01/24/18 12:00 97.3 63 19 130/84 (99) 99 01/24/18 09:00 82 01/24/18 08:00 98.1 82 20 137/63 (87) 99 01/24/18 08:00 99 Room Air 01/24/18 04:01 62 01/24/18 04:00 99.7 75 20 116/57 (76) 96 01/24/18 03:44 75 01/24/18 02:51 18 01/24/18 00:00 99.1 70 20 125/70 (88) 98 01/23/18 23:37 Room Air 01/23/18 20:59 98.4 73 18 123/56 99 01/23/18 20:00 98.4 70 20 110/58 (75) 98 01/23/18 20:00 68 01/23/18 17:52 98.5 79 18 112/72 98 01/23/18 16:00 98.5 79 18 109/56 (73) 99 I/O 01/23/18 01/23/18 01/23/18 01/24/18 01/24/18 01/24/18 06:59 14:59 22:59 06:59 14:59 22:59 Intake Total 610 ml 755 ml 520 ml 820 ml 220 ml Balance 610 ml 755 ml 520 ml 820 ml 220 ml Intake Oral 360 ml 720 ml 120 ml IV Total 250 ml 350 ml 100 ml 100 ml 100 ml Packed Cells 400 ml 400 ml Blood Product IV Normal Saline Flush 5 ml 20 ml # Voids 4 3 2 # Bowel Movements 0 Result Diagram: 01/24/1844301/24/18443 Objective Remarks GENERAL: Well-nourished, well-developed patient. SKIN: Warm and dry. HEAD: Normocephalic. EYES: No scleral icterus. No injection or drainage. NECK: Supple, trachea midline. No JVD or lymphadenopathy. CARDIOVASCULAR: Regular rate and rhythm without murmurs, gallops, or rubs. RESPIRATORY: Breath sounds equal bilaterally. No accessory muscle use. GASTROINTESTINAL: Abdomen soft, non-tender, nondistended. EXTREMITIES: No cyanosis, or edema. Right leg is in straight leg splint from thigh to ankle NEUROLOGICAL: Awake, alert, and oriented x 3. Non-focal. A/P Problem List: (1) Right femoral fracture ICD Code: S72.91XA - Unspecified fracture of right femur, initial encounter for closed fracture Status: Acute Assessment and Plan Displaced right femur supracondylar fracture s/p ORIF with Dr. Rocha 01/22 Continue physical therapy Cleared for discharge by Ortho Type 2 diabetes Sliding scale coverage with Accu-Cheks Continue home dose of metformin Diabetic diet Hypertension Continue home medications, amlodipine, lisinopril, HCTZ h/o asthma Albuterol nebulizers if needed DVT prophylaxis Lovenox Discharge Planning Cleared for discharge by orthopedics Awaiting DME (wheelchair and walker ) Orthopedics recommends no airline flights for 1 week postop Problem Qualifiers (1) Right femoral fracture: Qualified Codes: S72.451A - Displaced supracondylar fracture without intracondylar extension of lower end of right femur, initial encounter for closed fracture Manav Starks MD January 24, 2018 15:33
[2018-01-24] MEDS: SCOPOLAMINE 1.5 MG PATCH T-DERMAL SCH (17:34)
[2018-01-24] MEDS: REMOVE OLD SCOPOLAMINE PATCH T-DERMAL SCH (17:34)
[2018-01-24] MEDS: TAMSULOSIN HCL 0.4 MG CAP PO SCH (20:52)
[2018-01-24] MEDS: ATORVASTATIN 40 MG TAB PO SCH (20:52)
[2018-01-25] VITALS: BP 129/64; PULSE 71; PULSE 75; RESP 18; TEMP 98.4; O2SAT 94
[2018-01-25] MEDS: oxyCODONE/ACETAMINOPHEN 10 MG/325 MG TAB PO PRN (03:17)
[2018-01-25] MEDS: LACTATED RINGER'S 1000 ML INJ 1,000 ML IV SCH ×3 (03:43→20:48)
--- NOTE | 2018-01-25 07:34 | PD.ORT.PN ---
Subjective Subjective Remarks pt improving but still having trouble with ambulation, awaiting approval for insurance on DME Objective Vitals Vital Signs Date Time Temp Pulse Resp B/P (MAP) Pulse Ox O2 Delivery O2 Flow Rate FiO2 01/25/18 00:00 75 01/25/18 00:00 98.4 71 18 129/64 (85) 94 01/24/18 20:00 98.6 74 20 108/55 (72) 96 01/24/18 20:00 96 Room Air 01/24/18 19:32 85 01/24/18 16:00 97.7 78 20 127/62 (83) 99 01/24/18 12:00 97.3 63 19 130/84 (99) 99 01/24/18 09:00 82 01/24/18 08:00 98.1 82 20 137/63 (87) 99 01/24/18 08:00 99 Room Air I/O 01/24/18 01/24/18 01/24/18 01/25/18 01/25/18 01/25/18 07:00 15:00 23:00 07:00 15:00 23:00 Intake Total 820 ml 220 ml 800 ml 240 ml Output Total 900 ml Balance 820 ml 220 ml -100 ml 240 ml Intake Oral 720 ml 120 ml 800 ml 240 ml IV Total 100 ml 100 ml Output Urine Total 900 ml # Voids 2 4 Result Diagram: 01/24/18 0444 01/24/18 0444 Imaging Last 24 hours Impressions Femur X-Ray 01/21/18 1333 Signed Impressions: CONCLUSION: Spiral fracture distal right femoral shaft above right knee prosthesis. Chest X-Ray 01/21/18 1252 Signed Impressions: CONCLUSION: 1. Minimal retrocardiac opacity which may reflect a small hiatal hernia or air space consolidation. Consider formal PA and lateral views of the chest if there is continued clinical concern. Hip X-Ray 01/21/18 1211 Signed Impressions: CONCLUSION: Displaced spiral fracture through the distal femoral diaphysis as above Objective Remarks seen in the room with two family members RLE: dressings and splint in place +NVI Assessment & Plan Assessment and Plan 1) Right Distal Periprosthetic Femur Fx s/p ORIF - POD #3 -NWB -CKS -elevate -no quad sets or leg lifts -PROM 0-90deg -continue to work with therapy today, awaiting approval from insurance on DMEs, with it being holiday, they stated most likely will not be discharged until Thursday -patient lives in [place], plan for follow up with Ortho in 2 weeks at home. -informed patient to wait at least 1 week before flying -scripts on chart Tracy López January 25, 2018 07:34
[2018-01-25 08:00] VITALS: BP 135/96; PULSE 83; RESP 16; TEMP 98.3; O2SAT 99
[2018-01-25] MEDS: INSULIN ASPART SUPPLEMENTAL SCALE SQ SCH ×4 (08:00→20:47)
[2018-01-25 08:09] VITALS: PULSE 81
[2018-01-25] MEDS: LISINOPRIL 20 MG TAB PO SCH (09:00)
[2018-01-25] MEDS: amLODIPine BESYLATE 5 MG TAB PO SCH (09:00)
[2018-01-25] MEDS: HYDROCHLOROTHIAZIDE 25 MG TAB PO SCH (09:00)
[2018-01-25] MEDS: hydrOXYzine HCL 25 MG TAB PO SCH ×4 (09:17→20:46)
[2018-01-25] MEDS: DOCUSATE SODIUM 50 MG/SENNA 8.6 MG TAB PO SCH ×2 (09:17→20:46)
[2018-01-25] MEDS: PANTOPRAZOLE SOD 40 MG DELAYED RELEASE TAB PO SCH (09:17)
[2018-01-25] MEDS: CALCIUM/VITAMIN D 250 MG/125 U TAB PO SCH ×3 (09:17→18:15)
[2018-01-25] MEDS: CHOLECALCIFEROL (VIT D3) 1000 UNIT TAB PO SCH (09:17)
[2018-01-25] MEDS: metFORMIN HCL 500 MG TAB PO SCH ×2 (09:17→18:15)
[2018-01-25] MEDS: FLUCONAZOLE 100 MG TAB PO SCH (09:17)
[2018-01-25] MEDS: SODIUM CHLORIDE 0.9% FLUSH 10 ML FLUSH IV FLUSH SCH ×2 (09:18→20:47)
[2018-01-25] MEDS: SODIUM CHLOR 0.9% 1000 ML INJ 1,000 ML IV SCH ×3 (09:56→20:00)
[2018-01-25 12:00] VITALS: BP 118/65; PULSE 76; RESP 17; TEMP 98; O2SAT 98
[2018-01-25] MEDS: oxyCODONE/ACETAMINOPHEN 5 MG/325 MG TAB PO PRN (12:16)
[2018-01-25] MEDS: ENOXAPARIN SODIUM 30 MG/0.3 ML SYRINGE SQ SCH (12:16)
--- NOTE | 2018-01-25 14:33 | HHI.PR ---
Subjective Remarks 67-year-old female with right femur fracture. She is awaiting a wheelchair and a walker for discharge. Her only complaint today is that she wants to take a sponge bath. Objective Vitals Vital Signs Date Time Temp Pulse Resp B/P (MAP) Pulse Ox O2 Delivery O2 Flow Rate FiO2 01/25/18 12:00 98.0 76 17 118/65 (82) 98 01/25/18 08:09 81 01/25/18 08:00 98.3 83 16 135/96 (109) 99 01/25/18 07:58 Nasal Cannula 2.00 01/25/18 00:00 75 01/25/18 00:00 98.4 71 18 129/64 (85) 94 01/24/18 20:00 98.6 74 20 108/55 (72) 96 01/24/18 20:00 96 Room Air 01/24/18 19:32 85 01/24/18 16:00 97.7 78 20 127/62 (83) 99 I/O 01/24/18 01/24/18 01/24/18 01/25/18 01/25/18 01/25/18 07:00 15:00 23:00 07:00 15:00 23:00 Intake Total 820 ml 220 ml 800 ml 240 ml Output Total 900 ml Balance 820 ml 220 ml -100 ml 240 ml Intake Oral 720 ml 120 ml 800 ml 240 ml IV Total 100 ml 100 ml Output Urine Total 900 ml # Voids 2 4 Result Diagram: 01/24/18 0444 01/24/18 0444 Objective Remarks GENERAL: Well-nourished, well-developed patient. SKIN: Warm and dry. HEAD: Normocephalic. EYES: No scleral icterus. No injection or drainage. NECK: Supple, trachea midline. No JVD or lymphadenopathy. CARDIOVASCULAR: Regular rate and rhythm without murmurs, gallops, or rubs. RESPIRATORY: Breath sounds equal bilaterally. No accessory muscle use. GASTROINTESTINAL: Abdomen soft, non-tender, nondistended. EXTREMITIES: No cyanosis, or edema. Right leg is in straight leg splint from thigh to ankle NEUROLOGICAL: Awake, alert, and oriented x 3. Non-focal. A/P Problem List: (1) Right femoral fracture ICD Code: S72.91XA - Unspecified fracture of right femur, initial encounter for closed fracture Status: Acute Assessment and Plan 67-year-old female with right femur fracture, ORIF on 01/22. Patient has no new complaints and is awaiting discharge when DMEs arrive. Displaced right femur supracondylar fracture s/p ORIF with Dr. Rocha 01/22 Continue physical therapy Cleared for discharge by Ortho Type 2 diabetes Sliding scale coverage with Accu-Cheks Continue home dose of metformin Diabetic diet Hypertension Continue home medications, amlodipine, lisinopril, HCTZ h/o asthma Albuterol nebulizers if needed DVT prophylaxis Lovenox Discharge Planning Cleared for discharge by orthopedics Awaiting DME (wheelchair and walker ) Orthopedics recommends no airline flights for 1 week postop Problem Qualifiers (1) Right femoral fracture: Qualified Codes: S72.451A - Displaced supracondylar fracture without intracondylar extension of lower end of right femur, initial encounter for closed fracture Manav Starks MD January 25, 2018 14:33
[2018-01-25 16:00] VITALS: BP 128/59; PULSE 70; RESP 17; TEMP 99.1; O2SAT 97
[2018-01-25 20:00] VITALS: BP 133/63; PULSE 70; RESP 18; TEMP 99.2; O2SAT 99
[2018-01-25] MEDS: TAMSULOSIN HCL 0.4 MG CAP PO SCH (20:46)
[2018-01-25] MEDS: ATORVASTATIN 40 MG TAB PO SCH (20:47)
[2018-01-25] MEDS: ONDANSETRON ODT 4 MG TAB PO PRN (21:33)
[2018-01-26 00:01] VITALS: BP 121/56; PULSE 86; RESP 18; TEMP 99.4; O2SAT 95
[2018-01-26 04:00] VITALS: BP 120/58; PULSE 82; RESP 18; TEMP 99; O2SAT 96
[2018-01-26] MEDS: SODIUM CHLOR 0.9% 1000 ML INJ 1,000 ML IV SCH ×3 (04:39→20:26)
[2018-01-26] MEDS: oxyCODONE/ACETAMINOPHEN 5 MG/325 MG TAB PO PRN ×2 (05:41→20:35)
--- NOTE | 2018-01-26 07:16 | PD.ORT.PN ---
Subjective Subjective Remarks POD 4 s/p ORIF right distal femur doing well. pain controlled. states is waiting on wheelchair to be delivered before being discharged Objective Vitals Vital Signs Date Time Temp Pulse Resp B/P (MAP) Pulse Ox O2 Delivery O2 Flow Rate FiO2 01/26/18 04:00 99.0 82 18 120/58 (78) 96 01/26/18 00:01 99.4 86 18 121/56 (77) 95 01/25/18 20:00 99.2 70 18 133/63 (86) 99 01/25/18 16:00 99.1 70 17 128/59 (82) 97 01/25/18 12:00 98.0 76 17 118/65 (82) 98 01/25/18 08:09 81 01/25/18 08:00 98.3 83 16 135/96 (109) 99 01/25/18 07:58 Nasal Cannula 2.00 I/O 01/25/18 01/25/18 01/25/18 01/26/18 01/26/18 01/26/18 07:00 15:00 23:00 07:00 15:00 23:00 Intake Total 240 ml 750 ml 320 ml Balance 240 ml 750 ml 320 ml Intake Oral 240 ml 750 ml 320 ml # Voids 4 5 3 # Bowel Movements 3 Result Diagram: 01/24/18 0444 01/24/18 0444 Imaging Last 24 hours Impressions Femur X-Ray 01/21/18 1333 Signed Impressions: CONCLUSION: Spiral fracture distal right femoral shaft above right knee prosthesis. Chest X-Ray 01/21/18 1252 Signed Impressions: CONCLUSION: 1. Minimal retrocardiac opacity which may reflect a small hiatal hernia or air space consolidation. Consider formal PA and lateral views of the chest if there is continued clinical concern. Hip X-Ray 01/21/18 1211 Signed Impressions: CONCLUSION: Displaced spiral fracture through the distal femoral diaphysis as above Objective Remarks RLE: dressings and splint in place +NVI Assessment & Plan Assessment and Plan 1) Right Distal Periprosthetic Femur Fx s/p ORIF - POD #4 -NWB -CKS -elevate -no quad sets or leg lifts -PROM 0-90deg -continue to work with therapy today, awaiting approval from insurance on DMEs, with it being holiday, they stated most likely will not be discharged until Thursday -patient lives in [place], plan for follow up with Ortho in 2 weeks at home. -informed patient to wait at least 1 week before flying -scripts on chart Evelio Echavarria/First Olga MATOS January 26, 2018 07:15
[2018-01-26 08:00] VITALS: BP 114/61; PULSE 73; RESP 18; TEMP 97.7; O2SAT 97
[2018-01-26] MEDS: INSULIN ASPART SUPPLEMENTAL SCALE SQ SCH ×4 (08:00→20:26)
[2018-01-26] MEDS: metFORMIN HCL 500 MG TAB PO SCH ×2 (08:25→17:21)
[2018-01-26] MEDS: CHOLECALCIFEROL (VIT D3) 1000 UNIT TAB PO SCH (08:25)
[2018-01-26] MEDS: LISINOPRIL 20 MG TAB PO SCH (08:25)
[2018-01-26] MEDS: PANTOPRAZOLE SOD 40 MG DELAYED RELEASE TAB PO SCH (08:25)
[2018-01-26] MEDS: hydrOXYzine HCL 25 MG TAB PO SCH ×4 (08:26→20:26)
[2018-01-26] MEDS: HYDROCHLOROTHIAZIDE 25 MG TAB PO SCH (08:26)
[2018-01-26] MEDS: CALCIUM/VITAMIN D 250 MG/125 U TAB PO SCH ×3 (08:26→17:21)
[2018-01-26] MEDS: FLUCONAZOLE 100 MG TAB PO SCH (08:26)
[2018-01-26] MEDS: amLODIPine BESYLATE 5 MG TAB PO SCH (08:26)
[2018-01-26] MEDS: DOCUSATE SODIUM 50 MG/SENNA 8.6 MG TAB PO SCH ×2 (08:30→20:26)
[2018-01-26] MEDS: SODIUM CHLORIDE 0.9% FLUSH 10 ML FLUSH IV FLUSH SCH ×2 (08:30→20:26)
--- NOTE | 2018-01-26 09:31 | HHI.DS ---
Discharge Summary Admission Date January 21, 2018 at 14:50 Discharge Date: January 26, 2018 Admitting Diagnosis right femur fracture (1) Right femoral fracture ICD Code: S72.91XA - Unspecified fracture of right femur, initial encounter for closed fracture Status: Acute Procedures 01/22 right femur fracture status post ORIF with Dr. Rocha Brief History - From Admission Obtained from history and physical Patient is a 67-year-old female with past medical history of diabetes, hypertension hyperlipidemia. Who presented to the emergency department today with 10 out of 10 right hip pain and femur pain. Patient had onset of pain after [place]. Patient has not been ambulatory since then. Has a history of a total knee replacement on the right leg. She denies any numbness, or tingling of the extremities. She is a diabetic who takes a baby aspirin daily. She was found to have a right spiral femur fracture will be admitted for evaluation and treatment with orthopedic surgery CBC/BMP: 01/24/18 0444 01/24/18 0444 Significant Findings Laboratory Tests Test 01/24/18 04:44 Hemoglobin 10.1 GM/DL (11.6-15.3) Hematocrit 30.6 % (35.0-46.0) Mean Corpuscular Volume 73.8 FL (80.0-100.0) Mean Corpuscular Hemoglobin 24.3 PG (27.0-34.0) Red Cell Distribution Width 23.9 % (11.6-17.2) Monocytes (%) (Auto) 12.6 % (0.0-8.0) Monocytes # (Auto) 1.1 TH/MM3 (0-0.9) Random Glucose 114 MG/DL (74-106) Potassium Level 3.4 MEQ/L (3.5-5.1) Estimat Glomerular Filtration Rate 64 ML/MIN (>89) Imaging Last Impressions Femur X-Ray 01/22/18 0000 Signed Impressions: CONCLUSION: Intraoperative images. Chest X-Ray 01/21/18 1252 Signed Impressions: CONCLUSION: 1. Minimal retrocardiac opacity which may reflect a small hiatal hernia or air space consolidation. Consider formal PA and lateral views of the chest if there is continued clinical concern. Hip X-Ray 01/21/18 1211 Signed Impressions: CONCLUSION: Displaced spiral fracture through the distal femoral diaphysis as above PE at Discharge GENERAL: Well-nourished, well-developed patient. SKIN: Warm and dry. HEAD: Normocephalic. EYES: No scleral icterus. No injection or drainage. NECK: Supple, trachea midline. No JVD or lymphadenopathy. CARDIOVASCULAR: Regular rate and rhythm without murmurs, gallops, or rubs. RESPIRATORY: Breath sounds equal bilaterally. No accessory muscle use. GASTROINTESTINAL: Abdomen soft, non-tender, nondistended. EXTREMITIES: No cyanosis, or edema. Right leg is in straight leg splint from thigh to ankle NEUROLOGICAL: Awake, alert, and oriented x 3. Non-focal. Pt update on day of discharge Pain controlled and ready to be discharged. Hospital Course These are the medical issues addressed during this hospitalization: 67-year-old female with right femur fracture, ORIF on 01/[address] Rocha. Patient had uncomplicated postoperative care and continue with physical therapy , pain control, bowel regimen during the hospitalization. At this time patient has gained maximum benefit from hospitalization and ready to be discharged to home with wheelchair. She was instructed to not fly for at least 1 week post discharge back to [place]. Type 2 diabetes mellitus, Sliding scale coverage with Accu-Cheks Continue home dose of metformin Diabetic diet Hypertension chronic essential Continue home medications, amlodipine, lisinopril, HCTZ h/o asthma, chronic with no acute exacerbation during hospitalization Albuterol nebulizers if needed DVT prophylaxis Lovenox Pt Condition on Discharge: Good Discharge Disposition: Disch w/ Home Health Serv Discharge Time: <= 30 minutes Discharge Instructions DIET: Follow Instructions for: As Tolerated, No Restrictions, Diabetic Diet Activities you can perform: Non Weight Bearing Other Activity Instructions: NADIA soliz Follow up Referrals: Orthopedics - 2 Weeks @ [facility] with Corbin Rocha MD New Medications: Calcium Carbonate-Vitamin D (Calcium 600+D 200) 600-200 Mg-Unit Tab 1 TAB PO BID for Nutritional Supplement, #60 TAB 0 Refills Cholecalciferol (Vitamin D3) 2,000 Unit Cap 2000 UNITS PO DAILY for Nutritional Supplement, #60 CAP 0 Refills Ergocalciferol (Ergocalciferol) 50,000 Unit Cap 77794 UNITS PO Q7D for Nutritional Supplement, #8 CAP Hydrocodone-Acetaminophen (Hydrocodone-Acetaminophen) 10-325 mg Tab 1 TAB PO Q4H PRN for PAIN, #60 TAB 0 Refills Rivaroxaban (Xarelto) 10 Mg Tab 10 MG PO DAILY for Blood Clot Prevention, #14 TAB 0 Refills Walker/Adult/Folding (Walker/Adult/Folding) 1 Mis Mis EA .XX DIRECTED, #1 0 Refills Wheelchair Elevated Leg (Wheelchair Elevated Leg) 1 Mis Mis EA .XX DIRECTED, #1 0 Refills Continued Medications: Albuterol 18 GM Inh (Ventolin Hfa 18 GM Inh) 90 Mcg/Act Aer 1 PUFF INH Q4H PRN for SHORTNESS OF BREATH, #1 INHALER 0 Refills Amlodipine (Amlodipine) 5 Mg Tab 5 MG PO DAILY for Blood Pressure Management, #30 TAB 0 Refills Aspirin (Aspirin) 81 Mg Chew 81 MG CHEW ONCE, #1 TAB 0 Refills Atorvastatin (Atorvastatin) 40 Mg Tab 40 MG PO HS for Cholesterol Management, #30 TAB 0 Refills Diclofenac-Misoprostol (Diclofenac-Misoprostol) 50-0.2 Mg Tab 1 TAB PO QID for Pain Management, #120 TAB 0 Refills Ergocalciferol (Ergocalciferol) 50,000 Unit Cap 400 UNITS PO Q7D for Nutritional Supplement, #30 CAP 0 Refills Ferrous Sulfate (Iron) 18 Mg Tab Fluconazole (Fluconazole) 50 Mg Tab 50 MG PO DAILY for Infection, TAB 0 Refills Hydroxyzine HCl (Hydroxyzine HCl) 25 Mg Tab 25 MG PO QID, TAB 0 Refills Ibandronate (Boniva) 150 Mg Tab 150 MG PO Q28D, #1 TAB 0 Refills Lisinopril-Hctz (Lisinopril-Hctz) 20-25 Mg Tab 1 TAB PO DAILY for Blood Pressure Management, #30 TAB 0 Refills Metformin (Metformin) 1,000 Mg Tab 1000 MG PO BIDPC for Blood Sugar Management, #60 TAB 0 Refills Omeprazole (Omeprazole) 40 Mg Cap 40 MG DAILY, #30 CAP 0 Refills Scopolamine Patch 72 HR (Scopolamine Patch 72 HR) 1 Mg Patch 1 PATCH T-DERMAL Q72H, #10 PATCH 0 Refills Tamsulosin (Tamsulosin) 0.4 Mg Cap 0.4 MG HS for Manage Prostate Problems, #30 CAP 0 Refills Zolpidem (Zolpidem) 10 Mg Tab 10 MG PO HS PRN for INSOMNIA, TAB 0 Refills [Zyrtec] () Discontinued Medications: Calcium Carbonate-Cholecalciferol (Calcium 600 with Vitamin D) 600-400 mg-Unit Tab 1 TAB PO DAILY for Calcium Supplement, TAB 0 Refills Bre Mcghee MD January 26, 2018 09:31
[2018-01-26 12:00] VITALS: BP 116/65; PULSE 75; RESP 18; TEMP 97.8; O2SAT 96
[2018-01-26] MEDS: ENOXAPARIN SODIUM 30 MG/0.3 ML SYRINGE SQ SCH (12:13)
[2018-01-26] MEDS ORDERED: OXYC-255 PO (13:43)
[2018-01-26 16:00] VITALS: BP 141/66; PULSE 85; RESP 18; TEMP 97.6; O2SAT 97
[2018-01-26] MEDS: LACTATED RINGER'S 1000 ML INJ 1,000 ML IV SCH ×2 (17:13→20:26)
[2018-01-26 20:00] VITALS: BP 122/75; PULSE 80; RESP 18; TEMP 97.7; O2SAT 97
[2018-01-26] MEDS: TAMSULOSIN HCL 0.4 MG CAP PO SCH (20:26)
[2018-01-26] MEDS: ATORVASTATIN 40 MG TAB PO SCH (20:26)
[2018-01-27 00:25] VITALS: BP 102/52; PULSE 68; RESP 18; TEMP 98; O2SAT 96
[2018-01-27 04:25] VITALS: BP 117/58; PULSE 65; RESP 18; TEMP 97.9; O2SAT 94
[2018-01-27] MEDS: SODIUM CHLOR 0.9% 1000 ML INJ 1,000 ML IV SCH (07:15)
[2018-01-27] MEDS: LACTATED RINGER'S 1000 ML INJ 1,000 ML IV SCH (07:16)
[2018-01-27] MEDS: LISINOPRIL 20 MG TAB PO SCH (07:48)
[2018-01-27] MEDS: hydrOXYzine HCL 25 MG TAB PO SCH ×2 (07:49→11:40)
[2018-01-27] MEDS: CHOLECALCIFEROL (VIT D3) 1000 UNIT TAB PO SCH (07:50)
[2018-01-27] MEDS: PANTOPRAZOLE SOD 40 MG DELAYED RELEASE TAB PO SCH (07:50)
[2018-01-27] MEDS: oxyCODONE/ACETAMINOPHEN 10 MG/325 MG TAB PO PRN (07:50)
[2018-01-27] MEDS: amLODIPine BESYLATE 5 MG TAB PO SCH (07:50)
[2018-01-27] MEDS: CALCIUM/VITAMIN D 250 MG/125 U TAB PO SCH ×2 (07:51→11:40)
[2018-01-27] MEDS: FLUCONAZOLE 100 MG TAB PO SCH (07:51)
[2018-01-27] MEDS: HYDROCHLOROTHIAZIDE 25 MG TAB PO SCH (07:52)
[2018-01-27] MEDS: metFORMIN HCL 500 MG TAB PO SCH (07:52)
[2018-01-27] MEDS: INSULIN ASPART SUPPLEMENTAL SCALE SQ SCH ×2 (07:53→11:38)
[2018-01-27] MEDS: DOCUSATE SODIUM 50 MG/SENNA 8.6 MG TAB PO SCH (07:53)
[2018-01-27] MEDS: SODIUM CHLORIDE 0.9% FLUSH 10 ML FLUSH IV FLUSH SCH (07:55)
[2018-01-27 08:00] VITALS: BP 112/62; PULSE 78; RESP 18; TEMP 98; O2SAT 97
[2018-01-27] MEDS: ONDANSETRON ODT 4 MG TAB PO PRN (08:52)
--- NOTE | 2018-01-27 09:55 | HHI.PR ---
Subjective Remarks Still waiting for her equipment in her wheelchair. Wants to go home soon so she can be out in the sun enjoying [place] sunshine and weather. Objective Vitals Vital Signs Date Time Temp Pulse Resp B/P (MAP) Pulse Ox O2 Delivery O2 Flow Rate FiO2 01/27/18 08:00 98.0 78 18 112/62 (79) 97 01/27/18 07:55 Room Air 01/27/18 04:25 97.9 65 18 117/58 (77) 94 01/27/18 00:25 98.0 68 18 102/52 (69) 96 01/26/18 20:00 97.7 80 18 122/75 (91) 97 01/26/18 16:00 97.6 85 18 141/66 (91) 97 01/26/18 12:00 97.8 75 18 116/65 (82) 96 I/O 01/26/18 01/26/18 01/26/18 01/27/18 01/27/18 01/27/18 07:00 15:00 23:00 07:00 15:00 23:00 Intake Total 320 ml 320 ml Balance 320 ml 320 ml Intake Oral 320 ml 320 ml # Voids 3 3 3 # Bowel Movements 2 0 1 Result Diagram: 01/24/18 0444 01/24/18 0444 Other Results Item Value Date Time Bedside Blood Glucose 142 mg/dl 01/27/18 0755 Bedside Blood Glucose 156 mg/dl 01/26/182036 Objective Remarks GENERAL: This is a well-nourished, well-developed patient, in no apparent distress. CARDIOVASCULAR: Regular rate and rhythm RESPIRATORY: Clear to auscultation. Breath sounds equal bilaterally. No wheezes , rales, or rhonchi. MUSCULOSKELETAL: Extremities without clubbing, cyanosis, or edema. Right lower leg immobilizer in place. NEURO: Alert & Oriented x4 to person, place, time, situation. Moves all ext x4 Procedures 01/22 right femur fracture status post ORIF with Dr. Rocha A/P Problem List: (1) Right femoral fracture ICD Code: S72.91XA - Unspecified fracture of right femur, initial encounter for closed fracture Status: Acute Assessment and Plan Displaced right femur supracondylar fracture--status post op day # 5ORIF with Dr. Rocha - continue postoperative care, pain control, physical therapy Diabetes mellitus type II continue on home medications with metformin with sliding scale coverage and Accu-Cheks, patient with good blood sugar control. Hypertension, chronic essential resume home medications amlodipine, lisinopril HCTZ Hyperlipidemia resume home statin Asthma, chronic and not in any exacerbation continue home albuterol inhalers as needed DVT prophylaxis - Lovenox Discharge Planning Discharge home today after clearance with orthopedic surgery and when DME is arranged Problem Qualifiers (1) Right femoral fracture: Qualified Codes: S72.451A - Displaced supracondylar fracture without intracondylar extension of lower end of right femur, initial encounter for closed fracture Bre Mcghee MD January 27, 2018 09:55
[2018-01-27 11:30] VITALS: BP 98/51; PULSE 77; RESP 17; TEMP 98.3; O2SAT 97
[2018-01-27] MEDS: ENOXAPARIN SODIUM 30 MG/0.3 ML SYRINGE SQ SCH (11:39)
== END 2018-01-27 14:17 | disposition home health service (06) | DRG 481 ==
LOC: NEPE 11:48 → NEDA 14:50 → N06A 17:41
PROVIDERS: ADMIT Family Medicine; ATTEND Family Medicine
PROC: 0QSB04Z Reposition Right Lower Femur with Internal Fixation Device, Open Approach (ICD-10-PCS; principal; 2018-01-22 11:40)
DX: S72.451A Displaced supracondylar fracture without intracondylar extension of lower end of right femur, initial encounter for closed fracture (principal); M97.11XA Periprosthetic fracture around internal prosthetic right knee joint, initial encounter; I10 Essential (primary) hypertension; E11.9 Type 2 diabetes mellitus without complications; D64.9 Anemia, unspecified; N20.0 Calculus of kidney; K21.9 Gastro-esophageal reflux disease without esophagitis; E78.5 Hyperlipidemia, unspecified; M81.0 Age-related osteoporosis without current pathological fracture; J45.909 Unspecified asthma, uncomplicated; M25.551 Pain in right hip; W18.39XA Other fall on same level, initial encounter; Z96.651 Presence of right artificial knee joint; Z90.710 Acquired absence of both cervix and uterus; Y92.832 Beach as the place of occurrence of the external cause; Z79.84 Long term (current) use of oral hypoglycemic drugs; Z79.4 Long term (current) use of insulin
CPT/HCPCS: 36430; 71045; 73502; 73552; 76000; 76937; 80048; 80053; 82652; 82948; 83036; 83735; 84100; 84439; 84443; 85007; 85014; 85018; 85025; 85027; 85610; 85730; 86077; 86850; 86870; 86900; 86901; 86902; 86920; 86922; 93005; 94150; 96374; 96375; C1713; J0131; J0330; J0690; J1100; J1170; J1580; J1650; J1815; J1940; J2250; J2370; J2405; J2710; J2765; J3010; J3370; J7030; J7050; P9016